=== PATIENT | male | born 1965 | race Caucasian/White ===

== ENCOUNTER 2016-05-04 19:13 | Observation (INO) ==
[2016-05-04] MEDS ORDERED: 0.9 % Sodium Chloride 1,000 ML IVC ONE (20:05)
--- NOTE | 2016-05-04 20:12 | Emergency Department Note ---
Disposition Clinical Impression: Generalized weakness Urinary tract infection Qualifiers: Urinary tract infection type: acute cystitis Hematuria presence: without hematuria Qualified Code(s): N30.00 - Acute cystitis without hematuria Disposition: Admitted As Inpatient Condition: Good Prescriptions: Cefuroxime PO [Ceftin] 500 mg PO Q12HR #20 tablet Time of Disposition: 22:14 General Adult HPI - General Chief complaint: ED General Medical Stated complaint: back and shoulder pain Time Seen by Provider: 05/04/16 20:00 Source: patient Mode of arrival: EMS Limitations: physical limitation Nursing Notes Reviewed: Yes Vital Signs Reviewed: Yes - History of Present Illness HPI Narrative: 50-year-old white male who for the past 2 days had increasing weakness to the point where he cannot move his feet. He has MS, he does not ambulate or stand. He states he can normally move his feet. He states he has not been able to move his feet, and his arm still weaker than usual. He states he may have had a low-grade fever. He denies any congestion or cough. No chest pain or abdominal pain. He does self catheter and denies any difficulty urinating or incontinence. Onset (ago): day(s) (2) Location: upper extremity, lower extremity, other (And pain in his back and shoulders) Pain Scale: 4 Quality: burning Consistency: constant Improves with: nothing Worsens with: nothing Associated symptoms: Reports: fever/chills Treatments Prior to Arrival: none - Related Data Home Medications Medication Instructions Recorded Confirmed Baclofen 20 mg PO QID 11/28/14 05/04/16 Calcium Carbonate/Vitamin D3 1 each PO BID 11/28/14 05/04/16 [Calcium 250+D Tablet] ClonazePAM [Klonopin] 1 mg PO BID 11/28/14 05/04/16 Losartan [Cozaar] 50 mg PO DAILY 11/28/14 05/04/16 Omeprazole [PriLOSEC] 20 mg PO DAILY 11/28/14 05/04/16 Oxybutynin [Ditropan] 5 mg PO BID 11/28/14 05/04/16 Terazosin [Hytrin] 2 mg PO HS 11/28/14 05/04/16 Alendronate Sodium [Fosamax] 70 mg PO QWEEK 05/27/15 05/04/16 Previous Rx's Medication Instructions Recorded Cefuroxime PO [Ceftin] 500 mg PO Q12HR #20 tablet 05/04/16 Allergies Allergy/AdvReac Type Severity Reaction Status Date / Time No Known Allergies Allergy Verified 12/17/15 10:56 All systems ED: reviewed and negative except as stated. Constitutional: Reports: fever, chills Eyes: Denies: eye pain, eye discharge ENT ED: Denies: ear pain, throat pain Cardiovascular: Denies: chest pain, palpitations Respiratory: Denies: cough, dyspnea Gastrointestinal: Denies: abdominal pain, nausea, vomiting, diarrhea Genitourinary: Reports: other (Self-catheterization). Denies: urgency, dysuria , frequency Musculoskeletal: Reports: back pain, neck pain Integumentary: Denies: rash Past Medical History - Past Medical History Medical history: Reports: GERD, hyperlipidemia, hypertension, other Surgical history: Reports: colectomy, orthopedic, other (left wrist surgery secondary to trauma/fracture), other (unknown bladder surgery due to neurogenic bladder, tonsillectomy, wisdom teeth) Psychiatric history: Reports: anxiety - Social History Smoking Status: Never smoker Smokeless Tobacco Status: No Alcohol use: Reports: none Drug use: Reports: none Physical Exam - General Limitations: physical limitation General appearance: alert, in no apparent distress - Head Head exam: atraumatic, normocephalic - Eye Eye exam: Present: PERRL, EOMI. Absent: scleral icterus, conjunctival injection - ENT ENT exam: normal oropharynx, mucous membranes moist, TM's normal bilaterally - Neck Neck exam: Present: normal inspection, full ROM, trachea midline. Absent: tenderness, meningismus, lymphadenopathy - Respiratory Respiratory exam: Present: normal lung sounds bilaterally. Absent: respiratory distress, wheezes - Cardiovascular Cardiovascular exam: Present: regular rate, normal rhythm, normal heart sounds - Abdominal Exam Abdominal exam: Present: soft, Non-Tender. Absent: organomegaly, mass - Extremities Exam Extremities exam: Present: normal capillary refill, pedal edema (1+ edema lower legs bilaterally, pitting.). Absent: tenderness - Back Exam Back exam: Present: normal inspection. Absent: CVA tenderness (R), CVA tenderness (L) - Neurological Exam Neurological exam: Present: alert, oriented X3, other (He has minimal flexion of his feet as well as lower extremities, otherwise no other motor function. He has symmetrical intact motor function in his upper extremities, although his staff radiation therapist and flexion are somewhat weak.) - Psychiatric Psychiatric exam: Present: normal affect, normal mood - Skin Skin exam: Present: warm, dry, intact Course - Reevaluation(s) Reevaluation #1: He does have a urinary tract infection. His white blood cell count is not significantly elevated. His vital signs are stable. He is using his arms fine he can self catheter himself. He generally has very little movement in his legs , he can primarily move his feet. He has a little bit of movement in his feet. We talked about going home versus being admitted. He feels that he is too weak to self catheter himself, and would prefer to stay overnight. I spoke with Dr. Griffin. He is accepted patient for admission. Time: 22:13 Vital Signs Temperature 97.6 F 05/04/16 19:26 Pulse Rate 125 05/04/16 19:26 Respiratory Rate 18 05/04/16 19:26 Blood Pressure 148/79 05/04/16 19:26 O2 Sat by Pulse Oximetry 94 L 05/04/16 19:26 Temperature 97.6 F 05/04/16 19:26 Pulse Rate 121 05/04/16 21:33 Respiratory Rate 20 05/04/16 21:33 Blood Pressure 136/81 05/04/16 21:33 O2 Sat by Pulse Oximetry 97 05/04/16 21:33 Oxygen Delivery Oxygen Delivery Room Air Medical Decision Making - MDM Narrative Medical decision making narrative: Differential includes but is not limited to exacerbation of MS, influenza, urinary tract infection, pneumonia, dehydration, sepsis. - Lab Data Lab results reviewed: Yes I reviewed the patient's lab results. Result diagrams: 05/04/16 20:29 05/04/16 20:29 Lab Results 05/04/16 05/04/16 05/04/16 Range/Units 20:29 20:29 20:29 WBC 8.9 (4.3-11.1) K/mcL RBC 4.51 (4.19-5.50) M/mcL Hgb 14.9 (12.9-16.9) g/dL Hct 43.9 (37.5-50.1) % MCV 97.3 (83.0-100.0) fL MCH 33.0 (28.0-33.3) pg MCHC 33.9 (31.6-35.5) g/dL RDW 14.7 H (11.5-14.5) % Plt Count 236 (140-400) K/mcL MPV 8.7 L (9.4-12.4) fL Immature Gran % 0.3 (0-4) % Seg Neutrophils % 85.5 % Lymphocytes % 7.8 % Monocytes % 5.8 % Eosinophils % 0.4 % Basophils % 0.2 % Neutrophils # 7.6 (1.6-8.9) K/mcL Lymphocytes # 0.7 (0.6-4.6) K/mcL Monocytes # 0.5 (0.0-1.3) K/mcL Eosinophils # 0.0 (0.0-0.6) K/mcL Basophils # 0.0 (0.0-0.2) K/mcL VBG Lactic Acid 1.1 (0.5-2.2) mmol/L Sodium 140 (136-145) mEq/L Potassium 3.9 (3.5-4.5) mEq/L Chloride 104 (98-109) mEq/L Carbon Dioxide 24 (19-29) mEq/L BUN 17 (8-26) mg/dL Creatinine 0.84 (0.72-1.25) mg/dL Est GFR ( Amer) > 60 (> 60) Est GFR (Non-Af Amer) > 60 (> 60) BUN/Creatinine Ratio 20 (6-26) Glucose 114 H (70-99) mg/dL Calculated Osmolality 292 (280-300) Calcium 9.0 (8.6-10.8) mg/dL Total Bilirubin 0.5 (0.2-1.2) mg/dL AST 15 (5-34) Units/L ALT 25 (0-55) Units/L Alkaline Phosphatase 57 (38-126) Units/L Serum Total Protein 7.5 (6.0-8.3) g/dL Albumin 3.9 (3.5-5.0) g/dL Globulin 3.6 H (2.4-3.5) g/dL Albumin/Globulin Ratio 1.1 (1.1-2.2) Urine Color (Yellow) Urine Clarity (Clear) Urine pH (5.0-8.0) pH Units Ur Specific Hiko (1.010-1.025) Urine Protein (Neg-Trace) mg/dL Urine Glucose (UA) (Normal) mg/dL Urine Ketones (Negative) mg/dL Urine Blood (Negative) Urine Nitrite (Negative) Urine Bilirubin (Negative) Urine Urobilinogen (Normal) mg/dL Ur Leukocyte Esterase (Negative) Urine Microscopic RBC (0-3) per hpf Urine Microscopic WBC (0-3) per hpf Ur Squamous Epith Cells (None-Few) per lpf Urine Bacteria (None-Few) per hpf Ur Culture Indicated? (NO) 05/04/16 Range/Units 21:10 WBC (4.3-11.1) K/mcL RBC (4.19-5.50) M/mcL Hgb (12.9-16.9) g/dL Hct (37.5-50.1) % MCV (83.0-100.0) fL MCH (28.0-33.3) pg MCHC (31.6-35.5) g/dL RDW (11.5-14.5) % Plt Count (140-400) K/mcL MPV (9.4-12.4) fL Immature Gran % (0-4) % Seg Neutrophils % % Lymphocytes % % Monocytes % % Eosinophils % % Basophils % % Neutrophils # (1.6-8.9) K/mcL Lymphocytes # (0.6-4.6) K/mcL Monocytes # (0.0-1.3) K/mcL Eosinophils # (0.0-0.6) K/mcL Basophils # (0.0-0.2) K/mcL VBG Lactic Acid (0.5-2.2) mmol/L Sodium (136-145) mEq/L Potassium (3.5-4.5) mEq/L Chloride (98-109) mEq/L Carbon Dioxide (19-29) mEq/L BUN (8-26) mg/dL Creatinine (0.72-1.25) mg/dL Est GFR ( Amer) (> 60) Est GFR (Non-Af Amer) (> 60) BUN/Creatinine Ratio (6-26) Glucose (70-99) mg/dL Calculated Osmolality (280-300) Calcium (8.6-10.8) mg/dL Total Bilirubin (0.2-1.2) mg/dL AST (5-34) Units/L ALT (0-55) Units/L Alkaline Phosphatase (38-126) Units/L Serum Total Protein (6.0-8.3) g/dL Albumin (3.5-5.0) g/dL Globulin (2.4-3.5) g/dL Albumin/Globulin Ratio (1.1-2.2) Urine Color Yellow (Yellow) Urine Clarity Slightly Cloudy A (Clear) Urine pH 5.5 (5.0-8.0) pH Units Ur Specific Hiko 1.025 (1.010-1.025) Urine Protein 30 H (Neg-Trace) mg/dL Urine Glucose (UA) Normal (Normal) mg/dL Urine Ketones Trace H (Negative) mg/dL Urine Blood Large H (Negative) Urine Nitrite Positive A (Negative) Urine Bilirubin Negative (Negative) Urine Urobilinogen Normal (Normal) mg/dL Ur Leukocyte Esterase Trace H (Negative) Urine Microscopic RBC 5-15 H (0-3) per hpf Urine Microscopic WBC 5-15 H (0-3) per hpf Ur Squamous Epith Cells Few (None-Few) per lpf Urine Bacteria Moderate H (None-Few) per hpf Ur Culture Indicated? YES A (NO) - Radiology Data Radiology results reviewed: Yes I reviewed the patient's radiology results. ITS Impressions Chest X-Ray 05/04/16 20:05 IMPRESSION: Bilateral lower lobe atelectasis. D/ / 05/04/2016 20:54:33 Kory Stapleton MD / sarah Interpreting Provider: Kory Stapleton MD
[2016-05-04 20:35] LABS: Basophils % 0.2 %; Eosinophils % 0.4 %; Hematocrit 43.9 % (37.5-50.1); Hemoglobin 14.9 g/dL (12.9-16.9); Immature Granulocytes % 0.3 % (0-4); Lymphocytes # 0.7 K/mcL (0.6-4.6); Lymphocytes % 7.8 %; Mean Corpuscular HGB Conc 33.9 g/dL (31.6-35.5); Mean Corpuscular Volume 97.3 fL (83.0-100.0); Mean Platelet Volume 8.7 fL (9.4-12.4); Monocytes # 0.5 K/mcL (0.0-1.3); Monocytes % 5.8 %; Neutrophils # 7.6 K/mcL (1.6-8.9); Platelet Count 236 K/mcL (140-400); Red Blood Count 4.51 M/mcL (4.19-5.50); Red Cell Distribution Width 14.7 % (11.5-14.5); Segmented Neutrophils % 85.5 %
[2016-05-04 20:54] LABS: Alanine Aminotransferase 25 Units/L (0-55); Albumin 3.9 g/dL (3.5-5.0); Albumin/Globulin Ratio 1.1 (1.1-2.2); Alkaline Phosphatase 57 Units/L (38-126); Aspartate Amino Transferase 15 Units/L (5-34); BUN/Creatinine Ratio 20 (6-26); Bilirubin,Total 0.5 mg/dL (0.2-1.2); Blood Urea Nitrogen 17 mg/dL (8-26); Carbon Dioxide 24 mEq/L (19-29); Chloride 104 mEq/L (98-109); Globulin 3.6 g/dL (2.4-3.5); Glucose 114 mg/dL (70-99); Osmolality,Calculated 292 (280-300); Potassium 3.9 mEq/L (3.5-4.5); Sodium 140 mEq/L (136-145); Total Protein 7.5 g/dL (6.0-8.3); eGFR For African Americans > 60 (> 60); eGFR For Non-African Americans > 60 (> 60)
[2016-05-04 21:19] LABS: Bilirubin,Urine Negative (Negative); Blood,Urine Large (Negative); Clarity,Urine Slightly Cloudy (Clear); Color,Urine Yellow (Yellow); Glucose,Urine (UA) Normal (Normal); Ketones,Urine Trace mg/dL (Negative); Leukocyte Esterase,Urine Trace (Negative); Nitrite,Urine Positive (Negative); PH,Urine 5.5 pH Units (5.0-8.0); Protein,Urine 30 mg/dL (Neg-Trace); Specific Gravity,Urine 1.025 (1.010-1.025); Urobilinogen,Urine Normal (Normal)
[2016-05-04 21:57] LABS: Bacteria,Urine Moderate per hpf (None-Few); Squamous Epithelial Cell,Urine Few per lpf (None-Few)
[2016-05-04] MEDS ORDERED: CefTRIAXone 1,000 MG in D5% in Water (Mini-Bag+) 100 ML IVPB ONE (22:12)
[2016-05-04] MEDS ORDERED: Naloxone 0.4 MG/ML INJ IVP PRN (23:43)
[2016-05-05] MEDS ORDERED: *HR* Enoxaparin 40 MG/0.4 ML SYRINGE SQ SCH (06:00)
[2016-05-05] MEDS ORDERED: CALCIUM PO SCH (09:00)
[2016-05-05] MEDS ORDERED: CefTRIAXone 1,000 MG in D5% in Water (Mini-Bag+) 100 ML IVPB SCH (09:00)
[2016-05-05] MEDS ORDERED: ClonazePAM 0.5 MG TABLET PO SCH (09:00)
[2016-05-05] MEDS ORDERED: Baclofen 10 MG TABLET PO SCH (09:00)
[2016-05-05] MEDS ORDERED: [UNRECOGNIZED DRUG - OTHER] PO SCH (09:00)
[2016-05-05 10:29] VITALS: BP 109/71
--- NOTE | 2016-05-05 12:00 | Internal Med History&Physical ---
Date of Encounter: 05/05/16 Time of Encounter: 11:35 Assessment and Plan (1) Urinary tract infection Current visit: Yes Status: Acute He was given Rocephin in the emergency room. Further workup will be done as needed. Qualifiers: Urinary tract infection type: acute cystitis Hematuria presence: without hematuria Qualified Code(s): N30.00 - Acute cystitis without hematuria Internal Medicine - H&P: HPI Chief complaint: Weakness Admitted From: Home Plans for Post Hospital Care: Home History of present illness: Mr. Cabrera is a 50 year old male who came to emergency room complaining of increased weakness over the past 2 days. He had increased edema and decreased mobility of his feet. He was evaluated in emergency room and felt to have UTI and was admitted to [facility] floor for ongoing care needs. He states he feels back to his baseline now. He is not ambulatory and uses a motorized scooter at home. He was diagnosed with multiple sclerosis in [address] Mars at [facility] approximately every 6 months. He denies large distribution strokes or seizures. Past Med Surg Social Fam HX - Past Medical History Medical history: GERD, hyperlipidemia, hypertension, other Psychiatric history: anxiety - Past Surgical History Surgical History: colectomy, orthopedic, other, other - Social History Smoking Status: Never smoker Smokeless Tobacco Status: No Alcohol use: none Drug use: none - Family History Father Living Status: Still Living Hx Family Cancer: Yes (Prostate cancer in his 60s) Mother Living Status: Still Living Hx Family Cardiac Disorders: No (Hypertension) Hx Family Cancer: No Internal Medicine - H&P: Meds Baclofen 20 mg PO QID 11/28/14 [History] Calcium Carbonate/Vitamin D3 [Calcium 250+D Tablet] 1 each PO BID 11/28/14 [ History] ClonazePAM [Klonopin] 1 mg PO BID 11/28/14 [History] Losartan [Cozaar] 50 mg PO DAILY 11/28/14 [History] Omeprazole [PriLOSEC] 20 mg PO DAILY 11/28/14 [History] Oxybutynin [Ditropan] 5 mg PO BID 11/28/14 [History] Terazosin [Hytrin] 2 mg PO HS 11/28/14 [History] Alendronate Sodium [Fosamax] 70 mg PO QWEEK 05/27/15 [History] Cefuroxime PO [Ceftin] 500 mg PO Q12HR #20 tablet 05/04/16 [Rx] Allergies No Known Allergies Allergy (Verified 12/17/15 10:56) All Systems PM: A 10-system review of systems was performed and is negative for pertinent findings except as documented above in the HPI. Review of systems: Gen.: His weight has increased approximately 10 pounds since May [address] [facility] hospitalization. Cardiovascular: He has a history of hypertension but denies MT heart failure angina DVT or pulmonary embolus Respiratory: He is a lifelong nonsmoker and has no known chronic lung disease. He has had pneumonia in the past. GI: He has GERD but denies disorders of his liver gallbladder or exocrine pancreas. : He was diagnosed with overactive bladder. He has neurogenic bladder and does self catheterizations at home. He denies other kidney or bladder disorders. Neurologic: As per history of present illness Endocrine: He denies diabetes thyroid disease or hyperlipidemia Hematology/oncology: He denies blood disorders cancers or anemia Musk skeletal: He has osteoporosis but denies other bone joint or muscle disorders Psychiatric: He denies anxiety depression or other mental health issues - Constitutional Vitals: Temp Pulse Resp BP Pulse Ox 98.2 F 92 17 109/71 94 L 05/05/16 10:28 05/05/16 10:28 05/05/16 10:28 05/05/16 10:28 05/05/16 10:28 Exam: Gen.: He is a well-developed well-nourished male who appears in no severe distress at present time. HEENT: Head is atraumatic and normocephalic. Eyes: EOMI. There is no scleral icterus. Mouth: Mucosa is moist. Neck: Supple and nontender. There is no thyromegaly or adenopathy noted. Heart: Regular without murmurs gallops or ectopics. Lungs: No wheezes or crackles are heard. Abdomen: Soft and nontender. No masses or guarding are noted. Extremities: He has 1+ edema of the dorsum of the feet bilaterally. There is trace to 1+ edema of the lower anterior shins. He has no significant DJD changes noted in his hands. Neurologic: Mental status: He is talkative and a good historian. Cranial nerves : Smile is symmetric. Forehead wrinkles bilaterally. Tongue protrudes midline. EOMI. Motor: He has subtle weakness in outstretched arm maneuver bilaterally. Cerebellar: Finger to nose is intact and performed well with the right hand. He has some intention tremor when using the left hand. Skin: Warm and dry Internal Med - H&P Results - Labs CBC & Chem 7: 05/04/16 20:29 05/04/16 20:29
--- NOTE | 2016-05-05 12:11 | Discharge Summary ---
Date of Encounter: 05/05/16 Time of Encounter: 11:35 - Discharge Diagnosis (1) Urinary tract infection Priority: Primary Status: Acute Qualifiers: Urinary tract infection type: acute cystitis Hematuria presence: without hematuria Qualified Code(s): N30.00 - Acute cystitis without hematuria - Discharge Medications Prescriptions: Cefuroxime PO [Ceftin] 500 mg PO Q12HR #6 tablet Home Medications: Baclofen 20 mg PO QID 11/28/14 [History] Calcium Carbonate/Vitamin D3 [Calcium 250+D Tablet] 1 each PO BID 11/28/14 [ History] ClonazePAM [Klonopin] 1 mg PO BID 11/28/14 [History] Losartan [Cozaar] 50 mg PO DAILY 11/28/14 [History] Omeprazole [PriLOSEC] 20 mg PO DAILY 11/28/14 [History] Oxybutynin [Ditropan] 5 mg PO BID 11/28/14 [History] Terazosin [Hytrin] 2 mg PO HS 11/28/14 [History] Alendronate Sodium [Fosamax] 70 mg PO QWEEK 05/27/15 [History] Cefuroxime PO [Ceftin] 500 mg PO Q12HR #6 tablet 05/05/16 [Rx] Allergies/Adverse Reactions: Allergies No Known Allergies Allergy (Verified 12/17/15 10:56) Date of admission: 05/04/16 22:59 Primary care physician: Abhi Leslie DO - Patient Status Disposition: Home, Self-Care Condition: Good Overall status at discharge: patient is progressing back to baseline - Discharge Instructions Follow Up With: Abhi Leslie DO [Primary Care Provider] - 1 week - Diet and Activity Activity: resume usual activities as tolerated Diet: advance to your usual diet Hospital course: Mr. Cabrera is a 50 year old male who came to emergency room complaining of increased weakness over the past 2 days. He had increased edema and decreased mobility of his feet. He was evaluated in emergency room and felt to have UTI and was admitted to [facility] floor for ongoing care needs. Initial orders were written by the emergency room physician. I saw him on May 05 and performed a history physical and discharge. He was given a dose of Rocephin in emergency room. By the time I saw him on May 05 he stated his weakness had significantly improved and he felt essentially back to his baseline. He was able to move his arms and legs as at home. He wished to be discharged home which I felt was reasonable. He will continue with antibiotic for UTI for 3 additional days. He will follow with Dr. Leslie within 1 week. I told him he could discuss with Dr. Leslie use of a diuretic if his edema worsened. - Time Spent with Patient Total time spent providing and/or coordinating discharge services: - Constitutional Vitals: Temp Pulse Resp BP Pulse Ox 98.2 F 92 17 109/71 94 L 05/05/16 10:28 05/05/16 10:28 05/05/16 10:28 05/05/16 10:28 05/05/16 10:28
== END 2016-05-05 14:00 | disposition home or self-care (01) ==
LOC: INPPIK 19:13 → EMEROOPIK 19:13 → INPPIK 23:34
PROVIDERS: ADMIT Internal Medicine; ATTEND Internal Medicine

== ENCOUNTER 2016-08-13 09:14 | Observation (INO) ==
[2016-08-13] MEDS ORDERED: 0.9 % Sodium Chloride 1,000 ML IVC ONE (09:17)
[2016-08-13] MEDS ORDERED: Ipratropium/Albuterol Neb 3 ML IH ONE (09:17)
[2016-08-13] MEDS ORDERED: Levofloxacin 750 MG/150 ML 750 MG/150 ML BAG IVPB ONE (09:17)
--- NOTE | 2016-08-13 09:21 | Emergency Department Note ---
Disposition Clinical Impression: Multiple sclerosis, History of progressive weakness, Sepsis syndrome Urinary tract infection Qualifiers: Urinary tract infection type: acute cystitis Hematuria presence: without hematuria Qualified Code(s): N30.00 - Acute cystitis without hematuria Disposition: Admitted As Inpatient Condition: Fair Referrals: Abhi Leslie DO [Primary Care Provider] - Forms: ED Satisfaction Letter SOB HPI - General Chief Complaint: ED Shortness of Breath/Dyspnea Stated Complaint: worsening of MS, cannot move his legs/ SOB Time Seen by Provider: 08/13/16 09:17 Source: patient, EMS Mode of arrival: EMS Limitations: physical limitation Nursing Notes Reviewed: Yes Vital Signs Reviewed: Yes - History of Present Illness Patient reports diffuse weakness such that he has not been able to care for himself. He states his legs are too weak to move anything significant exacerbation of his multiple sclerosis. He additionally feels too weak to cough and has some congestion. He has a neurogenic bladder and does self- catheterization and has had a recent UTI but denies any urinary troubles at this time. Patient usually gets around with an electric wheelchair. He indicates that he is not feeling significantly short of breath at this time, but is saturating at 87% on supplemental oxygen. He denies headache, chest pain or abdominal pain. He denies nausea, vomiting, diarrhea or any extremity pains or localized weakness. He denies any ill exposures. He did have a temperature about 102 he had home and a temporal temperature of 101.8 here. Patient is also markedly to her MS with a heart rate of 143. His blood pressure has been about 120/80. Pt Subjective Complaint: cough Onset (ago): day(s) (1-2) Context: recent illness Severity: moderate Consistency/Duration: gradually worsening Improves with: oxygen, rest Worsens with: exertion, movement, coughing Known history of: other (Multiple sclerosis, self catheterization with recurrent UTI) Associated symptoms: Reports: fever, cough. Denies: chest pain, pain with inspiration, wheezing, sputum production, orthopnea, lower extremity pain, polyuria, polydipsia, parasthesias, palpitations, hemoptysis, diaphoresis, nausea/vomiting, syncope, abdominal pain, rash Treatment prior to arrival: oxygen Cough present: Yes Cough Description: Voluntary, Non-Productive, Weak, Rattling Cough Frequency: Intermittent Sputum production: No - Related Data Home oxygen amount: 2 liters Home Medications Medication Instructions Recorded Confirmed Baclofen 20 mg PO QID 11/28/14 08/13/16 Calcium Carbonate/Vitamin D3 1 each PO BID 11/28/14 08/13/16 [Calcium 250+D Tablet] ClonazePAM [Klonopin] 1 mg PO BID 11/28/14 08/13/16 Losartan [Cozaar] 50 mg PO DAILY 11/28/14 08/13/16 Omeprazole [PriLOSEC] 20 mg PO DAILY 11/28/14 08/13/16 Oxybutynin [Ditropan] 5 mg PO BID 11/28/14 08/13/16 Terazosin [Hytrin] 2 mg PO HS 11/28/14 08/13/16 Alendronate Sodium [Fosamax] 70 mg PO QWEEK 05/27/15 08/13/16 Allergies Allergy/AdvReac Type Severity Reaction Status Date / Time No Known Allergies Allergy Verified 12/17/15 10:56 All systems ED: reviewed and negative except as stated. Past Medical History - Past Medical History Attestation: Yes The following information was validated with the patient. Source: patient, old records reviewed, nursing notes reviewed Medical history: Reports: GERD, hypertension, other (Multiple sclerosis, osteoporosis, neurogenic bladder with self). Denies: coronary artery disease, DVT, diabetes, hyperlipidemia, myocardial infarction, pulmonary embolus, thyroid disease Surgical history: Reports: colectomy, orthopedic, other (Left wrist), other ( Bladder repair, tonsillectomy) Psychiatric history: Reports: anxiety - Social History Smoking Status: Never smoker Smokeless Tobacco Status: No Alcohol use: Reports: none Drug use: Reports: none Physical Exam - General Limitations: physical limitation General appearance: alert, in distress - Head Head exam: atraumatic, normocephalic, normal inspection, other (Head is held in 90 degrees forward flexed while he is semireclined. The patient is repositioned to try to better extend his head and improve his airway.) - Eye Eye exam: Present: normal appearance, PERRL, EOMI. Absent: scleral icterus, conjunctival injection - ENT ENT exam: normal exam, normal oropharynx, mucous membranes dry - Neck Neck exam: Present: normal inspection, full ROM, trachea midline. Absent: tenderness - Chest Chest inspection: Present: normal inspection, symmetric chest wall rise - Respiratory Respiratory exam: Present: normal lung sounds bilaterally, other (Shallow respirations with an occasional congested weak cough.). Absent: respiratory distress, wheezes, prolonged expiratory phase - Cardiovascular Cardiovascular exam: Present: regular rate, normal rhythm, tachycardia, normal heart sounds - Abdominal Exam Abdominal exam: Present: soft, Non-Tender, normal bowel sounds, scar (Large midline scar consistent with the patient's reported previous colectomy.). Absent: tenderness, distention, guarding, rebound, rigidity - Extremities Exam Extremities exam: Present: normal inspection, normal capillary refill. Absent: tenderness, pedal edema, calf tenderness - Expanded Lower Extremity Exam Neurovascular/Tendon exam: Present: normal capillary refill. Absent: motor deficit, sensory deficit, tendon deficit Gait: not tested/not observed - Back Exam Back exam: Present: normal inspection, full ROM. Absent: tenderness, CVA tenderness (R), CVA tenderness (L) - Neurological Exam Neurological exam: Present: alert, oriented X3, CN II-XII intact, motor sensory deficit (Diffuse weakness with chronic weakness of the lower extremities.) - Psychiatric Psychiatric exam: Present: normal mood, flat affect - Skin Skin exam: Present: warm, dry, intact, normal color. Absent: cyanosis, diaphoresis, pallor Course Course Narrative: 09: Patient has immediately started on a evaluation for possible sepsis syndrome with attention to pulmonary and urinary sources. He has been started on aggressive fluid rehydration as well as started on a stress dose steroid and broad-spectrum antibiotic with the administration of Levaquin. It is anticipated that he will need continued inpatient treatment and this will be coordinated with return of lab, EKG and imaging. 1000: Care discussed with bed management [facility]. They recommend starting this patient as an observation status with reevaluation tomorrow as to the need to convert to a full admission. Dr. Griffin has been paged to discuss the patient's inpatient care. 1020: Dr. Griffin has accepted this patient for observation admission to the hospital. Verbal orders have been obtained. Care is coronary to the floor the patient is currently in stable condition. He has a heart rate of 119, blood pressure 117/62 and a saturation of 97% with a respiratory rate of 17. Vital Signs Temperature 101.7 F H 08/13/16 09:17 Pulse Rate 143 08/13/16 09:17 Respiratory Rate 18 08/13/16 09:17 Blood Pressure 129/71 08/13/16 09:17 O2 Sat by Pulse Oximetry 90 08/13/16 09:17 Temperature 101.7 F H 08/13/16 09:20 Pulse Rate 86 08/13/16 10:33 Respiratory Rate 14 08/13/16 10:33 Blood Pressure 124/69 08/13/16 10:33 O2 Sat by Pulse Oximetry 94 08/13/16 10:33 Oxygen Delivery Oxygen Delivery Nasal Cannula Shortness of Breath/Dyspnea - Differential Diagnosis Likely: pneumonia (Urinary tract infection, sepsis syndrome) - Medical Records Medical records reviewed: Yes I reviewed the patient's medical records. - Lab Data Lab results reviewed: Yes I reviewed the patient's lab results. Result diagrams: 08/13/16 09:30 08/13/16 09:30 Lab Results 08/13/16 08/13/16 08/13/16 Range/Units 09:30 09:30 09:30 WBC 13.7 H (4.3-11.1) K/mcL RBC 4.65 (4.19-5.50) M/mcL Hgb 15.2 (12.9-16.9) g/dL Hct 44.6 (37.5-50.1) % MCV 95.9 (83.0-100.0) fL MCH 32.7 (28.0-33.3) pg MCHC 34.1 (31.6-35.5) g/dL RDW 14.6 H (11.5-14.5) % Plt Count 209 (140-400) K/mcL MPV 9.2 L (9.4-12.4) fL Immature Gran % 0.4 (0-4) % Seg Neutrophils % 90.6 % Lymphocytes % 2.9 % Monocytes % 5.8 % Eosinophils % 0.1 % Basophils % 0.2 % Neutrophils # 12.4 H (1.6-8.9) K/mcL Lymphocytes # 0.4 L (0.6-4.6) K/mcL Monocytes # 0.8 (0.0-1.3) K/mcL Eosinophils # 0.0 (0.0-0.6) K/mcL Basophils # 0.0 (0.0-0.2) K/mcL PT 12.7 H (9.4-12.1) Seconds INR 1.2 APTT 30.2 (26.0-36.0) Seconds VBG Lactic Acid (0.5-2.2) mmol/L Sodium 141 (136-145) mEq/L Potassium 3.6 (3.5-4.5) mEq/L Chloride 107 (98-109) mEq/L Carbon Dioxide 21 (19-29) mEq/L BUN 14 (8-26) mg/dL Creatinine 1.02 (0.72-1.25) mg/dL Est GFR ( Amer) > 60 (> 60) Est GFR (Non-Af Amer) > 60 (> 60) BUN/Creatinine Ratio 14 (6-26) Glucose 118 H (70-99) mg/dL Calculated Osmolality 294 (280-300) Calcium 9.2 (8.6-10.8) mg/dL Total Bilirubin 0.7 (0.2-1.2) mg/dL Direct Bilirubin 0.3 (0.0-0.5) mg/dL Indirect Bilirubin 0.4 (0.0-1.2) mg/dL AST 17 (5-34) Units/L ALT 22 (0-55) Units/L Alkaline Phosphatase 65 (38-126) Units/L Troponin I (0-0.03) ng/mL B-Natriuretic Peptide (0-100) pg/mL Serum Total Protein 7.7 (6.0-8.3) g/dL Albumin 3.8 (3.5-5.0) g/dL Globulin 3.9 H (2.4-3.5) g/dL Albumin/Globulin Ratio 1.0 L (1.1-2.2) Urine Color (Yellow) Urine Clarity (Clear) Urine pH (5.0-8.0) pH Units Ur Specific [place] (1.010-1.025) Urine Protein (Neg-Trace) mg/dL Urine Glucose (UA) (Normal) mg/dL Urine Ketones (Negative) mg/dL Urine Blood (Negative) Urine Nitrite (Negative) Urine Bilirubin (Negative) Urine Urobilinogen (Normal) mg/dL Ur Leukocyte Esterase (Negative) Urine Microscopic RBC (0-3) per hpf Urine Microscopic WBC (0-3) per hpf Ur Squamous Epith Cells (None-Few) per lpf Urine Bacteria (None-Few) per hpf Urine Mucus (Few) Ur Culture Indicated? (NO) 08/13/16 08/13/16 08/13/16 Range/Units 09:30 09:30 09:30 WBC (4.3-11.1) K/mcL RBC (4.19-5.50) M/mcL Hgb (12.9-16.9) g/dL Hct (37.5-50.1) % MCV (83.0-100.0) fL MCH (28.0-33.3) pg MCHC (31.6-35.5) g/dL RDW (11.5-14.5) % Plt Count (140-400) K/mcL MPV (9.4-12.4) fL Immature Gran % (0-4) % Seg Neutrophils % % Lymphocytes % % Monocytes % % Eosinophils % % Basophils % % Neutrophils # (1.6-8.9) K/mcL Lymphocytes # (0.6-4.6) K/mcL Monocytes # (0.0-1.3) K/mcL Eosinophils # (0.0-0.6) K/mcL Basophils # (0.0-0.2) K/mcL PT (9.4-12.1) Seconds INR APTT (26.0-36.0) Seconds VBG Lactic Acid 1.2 (0.5-2.2) mmol/L Sodium (136-145) mEq/L Potassium (3.5-4.5) mEq/L Chloride (98-109) mEq/L Carbon Dioxide (19-29) mEq/L BUN (8-26) mg/dL Creatinine (0.72-1.25) mg/dL Est GFR ( Amer) (> 60) Est GFR (Non-Af Amer) (> 60) BUN/Creatinine Ratio (6-26) Glucose (70-99) mg/dL Calculated Osmolality (280-300) Calcium (8.6-10.8) mg/dL Total Bilirubin (0.2-1.2) mg/dL Direct Bilirubin (0.0-0.5) mg/dL Indirect Bilirubin (0.0-1.2) mg/dL AST (5-34) Units/L ALT (0-55) Units/L Alkaline Phosphatase (38-126) Units/L Troponin I 0.02 (0-0.03) ng/mL B-Natriuretic Peptide 28 (0-100) pg/mL Serum Total Protein (6.0-8.3) g/dL Albumin (3.5-5.0) g/dL Globulin (2.4-3.5) g/dL Albumin/Globulin Ratio (1.1-2.2) Urine Color (Yellow) Urine Clarity (Clear) Urine pH (5.0-8.0) pH Units Ur Specific [place] (1.010-1.025) Urine Protein (Neg-Trace) mg/dL Urine Glucose (UA) (Normal) mg/dL Urine Ketones (Negative) mg/dL Urine Blood (Negative) Urine Nitrite (Negative) Urine Bilirubin (Negative) Urine Urobilinogen (Normal) mg/dL Ur Leukocyte Esterase (Negative) Urine Microscopic RBC (0-3) per hpf Urine Microscopic WBC (0-3) per hpf Ur Squamous Epith Cells (None-Few) per lpf Urine Bacteria (None-Few) per hpf Urine Mucus (Few) Ur Culture Indicated? (NO) 08/13/16 Range/Units Unknown WBC (4.3-11.1) K/mcL RBC (4.19-5.50) M/mcL Hgb (12.9-16.9) g/dL Hct (37.5-50.1) % MCV (83.0-100.0) fL MCH (28.0-33.3) pg MCHC (31.6-35.5) g/dL RDW (11.5-14.5) % Plt Count (140-400) K/mcL MPV (9.4-12.4) fL Immature Gran % (0-4) % Seg Neutrophils % % Lymphocytes % % Monocytes % % Eosinophils % % Basophils % % Neutrophils # (1.6-8.9) K/mcL Lymphocytes # (0.6-4.6) K/mcL Monocytes # (0.0-1.3) K/mcL Eosinophils # (0.0-0.6) K/mcL Basophils # (0.0-0.2) K/mcL PT (9.4-12.1) Seconds INR APTT (26.0-36.0) Seconds VBG Lactic Acid (0.5-2.2) mmol/L Sodium (136-145) mEq/L Potassium (3.5-4.5) mEq/L Chloride (98-109) mEq/L Carbon Dioxide (19-29) mEq/L BUN (8-26) mg/dL Creatinine (0.72-1.25) mg/dL Est GFR ( Amer) (> 60) Est GFR (Non-Af Amer) (> 60) BUN/Creatinine Ratio (6-26) Glucose (70-99) mg/dL Calculated Osmolality (280-300) Calcium (8.6-10.8) mg/dL Total Bilirubin (0.2-1.2) mg/dL Direct Bilirubin (0.0-0.5) mg/dL Indirect Bilirubin (0.0-1.2) mg/dL AST (5-34) Units/L ALT (0-55) Units/L Alkaline Phosphatase (38-126) Units/L Troponin I (0-0.03) ng/mL B-Natriuretic Peptide (0-100) pg/mL Serum Total Protein (6.0-8.3) g/dL Albumin (3.5-5.0) g/dL Globulin (2.4-3.5) g/dL Albumin/Globulin Ratio (1.1-2.2) Urine Color Yellow (Yellow) Urine Clarity Cloudy A (Clear) Urine pH 7.0 (5.0-8.0) pH Units Ur Specific [place] 1.010 (1.010-1.025) Urine Protein 30 H (Neg-Trace) mg/dL Urine Glucose (UA) Normal (Normal) mg/dL Urine Ketones Negative (Negative) mg/dL Urine Blood Moderate H (Negative) Urine Nitrite Positive A (Negative) Urine Bilirubin Negative (Negative) Urine Urobilinogen Normal (Normal) mg/dL Ur Leukocyte Esterase Moderate H (Negative) Urine Microscopic RBC 3-5 H (0-3) per hpf Urine Microscopic WBC 50-100 H (0-3) per hpf Ur Squamous Epith Cells Few (None-Few) per lpf Urine Bacteria Moderate H (None-Few) per hpf Urine Mucus Few (Few) Ur Culture Indicated? YES A (NO) - Radiology Data Radiology results reviewed: Yes I reviewed the patient's radiology results. Single view chest x-ray is performed. This is significantly rotated and evaluated on 2 films. This does not demonstrate evidence for infiltrate, effusion, pneumothorax, foreign body or heart failure. The cardiac silhouette is normal. I do not see abnormality to the osseous structures of the chest. This is on my interpretation. Impressions Chest X-Ray 08/13/16 09:17 IMPRESSION: Cardiomegaly, mildly increased. Mild pulmonary vascular congestion. Mild atelectasis at the bilateral lung bases. D/ / Andrei Guido MD / Andrie Guido MD Interpreting Provider: Andrei Guido MD - EKG Data EKG attestation: Yes I reviewed and interpreted this EKG. EKG shows normal: Reports: sinus rhythm, axis, intervals, QRS complexes, ST-T waves Rate: Reports: tachycardia (131) Q waves: Reports: III Interpretation: Reports: no acute changes (Sinus tachycardia) Critical Care Time Critical Care Time: Yes Total Critical Care Time: 25 Attestation: As this patient did present with signs and symptoms of potential life- threatening illness requiring my urgent intervention, total critical care time in this patient's care has been 25 minutes, not withstanding separately reportable procedures.
[2016-08-13 09:37] LABS: Basophils % 0.2 %; Eosinophils % 0.1 %; Hematocrit 44.6 % (37.5-50.1); Hemoglobin 15.2 g/dL (12.9-16.9); Immature Granulocytes % 0.4 % (0-4); Lymphocytes # 0.4 K/mcL (0.6-4.6); Lymphocytes % 2.9 %; Mean Corpuscular HGB Conc 34.1 g/dL (31.6-35.5); Mean Corpuscular Hemoglobin 32.7 pg (28.0-33.3); Mean Corpuscular Volume 95.9 fL (83.0-100.0); Mean Platelet Volume 9.2 fL (9.4-12.4); Monocytes # 0.8 K/mcL (0.0-1.3); Monocytes % 5.8 %; Platelet Count 209 K/mcL (140-400); Red Blood Count 4.65 M/mcL (4.19-5.50); Red Cell Distribution Width 14.6 % (11.5-14.5); Segmented Neutrophils % 90.6 %
[2016-08-13 09:38] LABS: Neutrophils # 12.4 K/mcL (1.6-8.9)
[2016-08-13 09:43] LABS: INR 1.2; Prothrombin Time 12.7 Seconds (9.4-12.1)
[2016-08-13 09:45] LABS: Activated Partial Thrombo Time 30.2 Seconds (26.0-36.0)
[2016-08-13 09:54] LABS: Bilirubin,Urine Negative (Negative); Blood,Urine Moderate (Negative); Clarity,Urine Cloudy (Clear); Color,Urine Yellow (Yellow); Glucose,Urine (UA) Normal (Normal); Ketones,Urine Negative (Negative); Leukocyte Esterase,Urine Moderate (Negative); Nitrite,Urine Positive (Negative); Protein,Urine 30 mg/dL (Neg-Trace); Urobilinogen,Urine Normal (Normal)
[2016-08-13 09:55] LABS: Alanine Aminotransferase 22 Units/L (0-55); Albumin 3.8 g/dL (3.5-5.0); Alkaline Phosphatase 65 Units/L (38-126); Aspartate Amino Transferase 17 Units/L (5-34); BUN/Creatinine Ratio 14 (6-26); Bilirubin,Direct 0.3 mg/dL (0.0-0.5); Bilirubin,Indirect 0.4 mg/dL (0.0-1.2); Bilirubin,Total 0.7 mg/dL (0.2-1.2); Blood Urea Nitrogen 14 mg/dL (8-26); Calcium 9.2 mg/dL (8.6-10.8); Carbon Dioxide 21 mEq/L (19-29); Chloride 107 mEq/L (98-109); Globulin 3.9 g/dL (2.4-3.5); Glucose 118 mg/dL (70-99); Osmolality,Calculated 294 (280-300); Potassium 3.6 mEq/L (3.5-4.5); Sodium 141 mEq/L (136-145); Total Protein 7.7 g/dL (6.0-8.3); eGFR For African Americans > 60 (> 60); eGFR For Non-African Americans > 60 (> 60)
[2016-08-13 09:59] LABS: Bacteria,Urine Moderate per hpf (None-Few); Mucus,Urine Few (Few); Squamous Epithelial Cell,Urine Few per lpf (None-Few); WBC,Urine 50-100 per hpf (0-3)
[2016-08-13] MEDS ORDERED: 0.9 % Sodium Chloride 1,000 ML IVC SCH (10:50)
[2016-08-13] MEDS ORDERED: Acetaminophen 325 MG TABLET PO PRN (10:50)
[2016-08-13] MEDS ORDERED: Ibuprofen 400 MG TABLET PO PRN (10:50)
[2016-08-13] MEDS ORDERED: MOM Conc 10 ML UD.LIQ PO PRN (10:50)
[2016-08-13] MEDS ORDERED: Naloxone 0.4 MG/ML INJ IVP PRN (10:50)
[2016-08-13] MEDS ORDERED: Ondansetron 4 MG/2 ML VIAL IVP PRN (10:50)
[2016-08-13] MEDS: Baclofen 10 MG TABLET PO SCH ×3 (14:32→22:01)
--- NOTE | 2016-08-13 16:13 | Internal Med History&Physical ---
Date of Encounter: 08/13/16 Time of Encounter: 15:50 Assessment and Plan (1) Urinary tract infection Current visit: Yes Status: Acute He has been started on Levaquin by the emergency room physician. IV fluids have also been started. His regular home medicines will be generally continued otherwise. Further workup will be done as needed. Qualifiers: Urinary tract infection type: acute cystitis Hematuria presence: without hematuria Qualified Code(s): N30.00 - Acute cystitis without hematuria Internal Medicine - H&P: HPI Chief complaint: Fevers and weakness Admitted From: Home Plans for Post Hospital Care: Home History of present illness: Mr. Cabrera is a 51 year old male who came to emergency room stating he had fevers and increased weakness over the proceeding 24-48 hours. He particularly noticed weakness in his hands with inability to do usual dexterity maneuvers. He reports he had fevers up to 102. He was evaluated in emergency room and found to have UTI. He was admitted to [facility] floor for ongoing care needs. He was hospitalized last at [facility] April 2016 with a UTI. He states he has monthly UTIs since that visit. He has neurogenic bladder and does frequent daily self catheterizations at home. He denies other kidney or bladder disorders. Past Med Surg Social Fam HX - Past Medical History Medical history: GERD, hypertension, other Psychiatric history: anxiety - Past Surgical History Surgical History: colectomy, orthopedic, other, other - Social History Smoking Status: Never smoker Smokeless Tobacco Status: No Alcohol use: rarely Drug use: none - Family History Father Living Status: Still Living Hx Family Cancer: Yes (Prostate cancer in his 60s) Mother Living Status: Still Living Hx Family Cardiac Disorders: No (Hypertension) Hx Family Cancer: No Internal Medicine - H&P: Meds Baclofen 20 mg PO QID 11/28/14 [History] Calcium Carbonate/Vitamin D3 [Calcium 250+D Tablet] 1 each PO BID 11/28/14 [ History] ClonazePAM [Klonopin] 1 mg PO BID 11/28/14 [History] Losartan [Cozaar] 50 mg PO DAILY 11/28/14 [History] Omeprazole [PriLOSEC] 20 mg PO DAILY 11/28/14 [History] Oxybutynin [Ditropan] 5 mg PO BID 11/28/14 [History] Terazosin [Hytrin] 2 mg PO HS 11/28/14 [History] Alendronate Sodium [Fosamax] 70 mg PO QWEEK 05/27/15 [History] Allergies No Known Allergies Allergy (Verified 12/17/15 10:56) All Systems PM: A 10-system review of systems was performed and is negative for pertinent findings except as documented above in the HPI. Review of systems: Review of systems from his April 2016 [facility] hospitalization were reviewed and revised as below. Gen.: His weight has decreased from 104.326 kg at the April 2016 hospitalization to 100.244 kg now. Cardiovascular: He has a history of hypertension but denies [place] heart failure angina DVT or pulmonary embolus Respiratory: He is a lifelong nonsmoker and has no known chronic lung disease. He has had pneumonia in the past. GI: He has GERD but denies disorders of his liver gallbladder or exocrine pancreas. : As per history of present illness Neurologic: He was diagnosed with multiple sclerosis in [address] Mars at [facility] approximately every 6 months. He denies large distribution strokes or seizures. He is nonambulatory and uses a motorized scooter at home. Endocrine: He denies diabetes thyroid disease or hyperlipidemia Hematology/oncology: He denies blood disorders cancers or anemia [place] skeletal: He has osteoporosis but denies other bone joint or muscle disorders Psychiatric: He denies anxiety depression or other mental health issues - Constitutional Vitals: Temp Pulse Resp BP Pulse Ox 98.5 F 101 18 103/70 96 08/13/16 14:07 08/13/16 14:07 08/13/16 14:07 08/13/16 14:07 08/13/16 14:07 Exam: Gen.: He is a well-developed well-nourished male who appears in no severe distress at present time. HEENT: Head is atraumatic and normocephalic. Eyes: EOMI. There is no scleral icterus. Mouth: Mucosa is moist. Neck: Supple and nontender. There is no thyromegaly or adenopathy noted. Heart: Regular without murmurs gallops or ectopics. Lungs: No wheezes or crackles are heard. Abdomen: Soft and nontender. There are no masses or guarding noted. Extremities: He is wearing GOKUL hose. There is no edema palpated through the GOKUL hose. He has no cyanosis of his fingernails. Neurologic: Mental status: He is talkative and a good historian. Cranial nerves : Smile is symmetric. Forehead wrinkles bilaterally. Tongue protrudes midline. EOMI. Motor: He has no pronator drift. He has slight weakness in attempting finger to nose maneuver. He does not move his legs spontaneously. Cerebellar: Finger to nose is intact bilaterally with some motor weakness as per above Skin: Warm and dry Internal Med - H&P Results - Labs CBC & Chem 7: 08/13/16 09:30 08/13/16 09:30 Labs: Urine 08/13/16 Range/Units Unknown Urine Color Yellow (Yellow) Urine Clarity Cloudy A (Clear) Urine pH 7.0 (5.0-8.0) pH Units Ur Specific [place] 1.010 (1.010-1.025) Urine Protein 30 H (Neg-Trace) mg/dL Urine Glucose (UA) Normal (Normal) mg/dL - VTE Documentation of Mechanical Device: Graduated compression elastic hosiery
[2016-08-13] MEDS: 0.9 % Sodium Chloride 1,000 ML IVC SCH (18:04)
[2016-08-13] MEDS: Lactobacillus 1 EACH CAP.SPRINK PO SCH (22:00)
[2016-08-13] MEDS: ClonazePAM 0.5 MG TABLET PO SCH (22:00)
[2016-08-14] MEDS: (Calcium Carbonate/Vitamin D3 [Calcium 250+D Tablet] PO SCH ×2 (05:01→08:54)
[2016-08-14 05:36] LABS: Basophils % 0.1 %; Eosinophils % 0.1 %; Hematocrit 36.6 % (37.5-50.1); Hemoglobin 12.3 g/dL (12.9-16.9); Immature Granulocytes % 0.6 % (0-4); Lymphocytes % 6.5 %; Mean Corpuscular HGB Conc 33.6 g/dL (31.6-35.5); Mean Corpuscular Hemoglobin 33.2 pg (28.0-33.3); Mean Corpuscular Volume 98.7 fL (83.0-100.0); Mean Platelet Volume 9.3 fL (9.4-12.4); Monocytes # 1.4 K/mcL (0.0-1.3); Monocytes % 8.6 %; Neutrophils # 13.5 K/mcL (1.6-8.9); Platelet Count 232 K/mcL (140-400); Red Blood Count 3.71 M/mcL (4.19-5.50); Red Cell Distribution Width 14.9 % (11.5-14.5); Segmented Neutrophils % 84.1 %
[2016-08-14 05:39] LABS: Lymphocytes # 1.1 K/mcL (0.6-4.6)
[2016-08-14] MEDS: Pantoprazole 40 MG VIAL IVP SCH (08:49)
[2016-08-14] MEDS: Baclofen 10 MG TABLET PO SCH ×4 (08:51→20:20)
[2016-08-14] MEDS: ClonazePAM 0.5 MG TABLET PO SCH (08:51)
[2016-08-14] MEDS: Lactobacillus 1 EACH CAP.SPRINK PO SCH ×2 (08:51→20:20)
[2016-08-14] MEDS: Levofloxacin 750 MG/150 ML 750 MG/150 ML BAG IVPB SCH (08:53)
--- NOTE | 2016-08-14 10:02 | Internal Med Progress Note ---
Date of Encounter: 08/14/16 Time of Encounter: 09:55 - Assessment and plan (1) Urinary tract infection Current Visit: Yes Status: Acute Assessment and plan: August 14. Continue Levaquin. Will add oral Septra pending final urine culture report. Recheck labs in a.m. Qualifiers: Urinary tract infection type: acute cystitis Hematuria presence: without hematuria Qualified Code(s): N30.00 - Acute cystitis without hematuria - Subjective Interval history: August 14. He has no new complaints and feels better. - Constitutional Vitals: Temp Pulse Resp BP Pulse Ox 97.5 F L 89 18 104/59 89 08/14/16 07:10 08/14/16 07:10 08/14/16 07:10 08/14/16 07:10 08/14/16 07:10 Exam: He is resting comfortably in bed. His affect is bright and cheerful. I reviewed his medications and lab results. I note worsening leukocytosis. I reviewed his urine culture showing preliminary report of gram-negative rods. Internal Medicine: Result - Labs CBC & Chem 7: 08/14/16 05:15 08/13/16 09:30 Labs: Short CBC 08/14/16 Range/Units 05:15 WBC 16.1 H (4.3-11.1) K/mcL Hgb 12.3 L D (12.9-16.9) g/dL Hct 36.6 L (37.5-50.1) % Plt Count 232 (140-400) K/mcL Neutrophils # 13.5 H (1.6-8.9) K/mcL - ABG Interpretation ABG results: PT/INR, D-dimer PT 12.7 Seconds (9.4-12.1) H 08/13/16 09:30 - VTE Documentation of Mechanical Device: Graduated compression elastic hosiery Consult Discharge Plan - Plan Referrals: Abhi Leslie DO [Primary Care Provider] - 1 week
[2016-08-14] MEDS: Sulfamethoxazole/Trimeth DS 1 EACH TABLET PO SCH ×2 (12:23→20:19)
[2016-08-14] MEDS: 0.9 % Sodium Chloride 1,000 ML IVC SCH (16:29)
--- NOTE | 2016-08-14 20:17 | Electrocardiograph Report ---
[address] [place], [place] [address] Test Date: 2016-08-13 Pat Name: Alejandra [place] Department: [id number] Room: [facility] Gender: M [employer] Adviser: [id number] : 1965 Requested By: Rick Gandhi Order Number: [id number] Reading MD: Mamadou Piper MD Measurements Intervals [place] Rate: 131 P: 45 GA: 159 QRS: 22 QRSD: 86 T: 42 QT: 294 QTc: 371 Interpretive Statements SINUS TACHYCARDIA Electronically Signed On 08-14-2016 20:15:42 EDT by Mamadou Piper MD
[2016-08-14] MEDS ORDERED: ClonazePAM 0.5 MG TABLET PO SCH (21:00)
[2016-08-15] MEDS: (Calcium Carbonate/Vitamin D3 [Calcium 250+D Tablet] PO SCH ×2 (05:49→09:19)
[2016-08-15 06:45] LABS: Basophils % 0.3 %; Eosinophils # 0.1 K/mcL (0.0-0.6); Eosinophils % 1.4 %; Hematocrit 37.1 % (37.5-50.1); Hemoglobin 12.5 g/dL (12.9-16.9); Immature Granulocytes % 0.3 % (0-4); Lymphocytes # 0.4 K/mcL (0.6-4.6); Lymphocytes % 5.7 %; Mean Corpuscular HGB Conc 33.7 g/dL (31.6-35.5); Mean Corpuscular Hemoglobin 32.9 pg (28.0-33.3); Mean Corpuscular Volume 97.6 fL (83.0-100.0); Mean Platelet Volume 9.4 fL (9.4-12.4); Monocytes # 0.4 K/mcL (0.0-1.3); Monocytes % 5.2 %; Neutrophils # 6.8 K/mcL (1.6-8.9); Platelet Count 197 K/mcL (140-400); Red Cell Distribution Width 14.7 % (11.5-14.5); Segmented Neutrophils % 87.1 %
[2016-08-15 08:08] VITALS: BP 135/67
[2016-08-15] MEDS: Levofloxacin 750 MG/150 ML 750 MG/150 ML BAG IVPB SCH (09:18)
[2016-08-15] MEDS: Sulfamethoxazole/Trimeth DS 1 EACH TABLET PO SCH (09:19)
[2016-08-15] MEDS: Lactobacillus 1 EACH CAP.SPRINK PO SCH (09:19)
[2016-08-15] MEDS: Pantoprazole 40 MG VIAL IVP SCH (09:19)
[2016-08-15] MEDS: Baclofen 10 MG TABLET PO SCH (09:19)
--- NOTE | 2016-08-15 09:58 | Discharge Summary ---
Date of Encounter: 08/15/16 Time of Encounter: 09:50 - Discharge Diagnosis (1) Urinary tract infection Priority: Primary Status: Acute Qualifiers: Urinary tract infection type: acute cystitis Hematuria presence: without hematuria Qualified Code(s): N30.00 - Acute cystitis without hematuria - Discharge Medications Prescriptions: Lactobacillus [Culturelle] 1 each PO BID #10 cap.sprink Sulfamethoxazole/Trimeth DS [Bactrim Ds] 1 each PO BID #10 tablet Home Medications: Baclofen 20 mg PO QID 11/28/14 [History] Calcium Carbonate/Vitamin D3 [Calcium 250+D Tablet] 1 each PO BID 11/28/14 [ History] ClonazePAM [Klonopin] 1 mg PO BID 11/28/14 [History] Losartan [Cozaar] 50 mg PO DAILY 11/28/14 [History] Omeprazole [PriLOSEC] 20 mg PO DAILY 11/28/14 [History] Oxybutynin [Ditropan] 5 mg PO BID 11/28/14 [History] Terazosin [Hytrin] 2 mg PO HS 11/28/14 [History] Alendronate Sodium [Fosamax] 70 mg PO QWEEK 05/27/15 [History] Lactobacillus [Culturelle] 1 each PO BID #10 cap.sprink 08/15/16 [Rx] Sulfamethoxazole/Trimeth DS [Bactrim Ds] 1 each PO BID #10 tablet 08/15/16 [Rx] Allergies/Adverse Reactions: Allergies No Known Allergies Allergy (Verified 12/17/15 10:56) Date of admission: 08/13/16 10:43 Primary care physician: bAhi Leslie DO - Patient Status Disposition: Home, Self-Care Condition: Fair Overall status at discharge: patient is progressing back to baseline - Discharge Instructions Follow Up With: Abhi Leslie DO [Primary Care Provider] - 1 week - Diet and Activity Activity: resume usual activities as tolerated Diet: advance to your usual diet Hospital course: Mr. Cabrera is a 51 year old male who came to emergency room stating he had fevers and increased weakness over the proceeding 24-48 hours. He particularly noticed weakness in his hands with inability to do usual dexterity maneuvers. He reports he had fevers up to 102. He was evaluated in emergency room and found to have UTI. He was admitted to [facility] floor for ongoing care needs. Initial orders were written by the emergency room physician. I saw him on August 13 and performed the history and physical. He was started on Levaquin by the emergency room physician. I added Septra DS on August 14 when WBC count dayami to 16.1 K. Urine culture returned showing Klebsiella pneumonia. The WBC normalized by August 15 and he felt stable for discharge home. He will continue with Septra DS and probiotic for 5 additional days after discharge. - Time Spent with Patient Total time spent providing and/or coordinating discharge services: - Constitutional Vitals: Temp Pulse Resp BP Pulse Ox 98.6 F 110 16 135/67 93 08/15/16 07:00 08/15/16 07:00 08/15/16 07:00 08/15/16 07:00 08/15/16 07:00 - VTE Documentation of Mechanical Device: Graduated compression elastic hosiery
== END 2016-08-15 12:30 | disposition home or self-care (01) ==
LOC: INPPIK 09:14 → EMEROOPIK 09:14 → INPPIK 11:05
PROVIDERS: ADMIT Internal Medicine; ATTEND Internal Medicine

== ENCOUNTER 2018-09-16 10:47 | Observation (INO) ==
[2018-09-16] MEDS ORDERED: 0.9 % Sodium Chloride 1,000 ML IVC ONE (10:55)
[2018-09-16] MEDS ORDERED: Ondansetron 4 MG/2 ML VIAL IVP ONE (10:55)
--- NOTE | 2018-09-16 11:02 | Emergency Department Note ---
Disposition Clinical Impression: UTI (urinary tract infection) Qualifiers: Urinary tract infection type: catheter-associated UTI Indwelling urinary catheter type: unspecified Encounter type: initial encounter Qualified Code(s): T83.511A - Infection and inflammatory reaction due to indwelling urethral catheter, initial encounter; N39.0 - Urinary tract infection, site not specified Pneumonia Qualifiers: Pneumonia type: due to unspecified organism Laterality: right Lung location: lower lobe of lung Qualified Code(s): J18.1 - Lobar pneumonia, unspecified organism Disposition: Admitted As Inpatient Condition: Fair Referrals: Abhi Leslie DO [Primary Care Provider] - Forms: ED Satisfaction Letter Time of Disposition: 13:30 Nausea/Vomiting/Diarrhea HPI - General Chief complaint: ED Nausea/Vomiting/Diarrhea Stated complaint: vomiting Source: patient, EMS Mode of arrival: EMS Limitations: physical limitation Nursing Notes Reviewed: Yes - History of Present Illness HPI Narrative: Patient presents to the ED via EMS complaining of generalized illness with symptoms of nausea, vomiting and a cough. Patient states he started feeling nauseous last night. He started throwing up this morning and has had 2-3 episodes of nonbloody nonbilious emesis. Denies any abdominal pain. No diarrhea or constipation. He has had a dry cough. No sore throat, nasal congestion or rhinorrhea. No chest pain or shortness of breath. He states his family took his temperature and it was 100 earlier this morning. Patient has a history of MS. He lives with his she is out of town and he has other family assisting him. He normally has to self catheter for urine but had trouble cathetering himself last night and has since been incontinent of urine. He denies any urinary symptoms however frequency, urgency or dysuria. He has had one bowel surgery due to bowel obstruction many years ago. Other medical issues include high blood pressure. He denies any recent travel or sick contacts. - Related Data Home Medications Medication Instructions Recorded Confirmed Baclofen 20 mg PO QID 11/28/14 08/13/16 Calcium Carbonate/Vitamin D3 1 each PO BID 11/28/14 08/13/16 [Calcium 250-D Tablet] Losartan [Cozaar] 50 mg PO DAILY 11/28/14 08/13/16 Oxybutynin [Ditropan] 5 mg PO BID 11/28/14 08/13/16 Terazosin [Hytrin] 2 mg PO HS 11/28/14 08/13/16 clonazePAM [Klonopin] 1 mg PO BID 11/28/14 08/13/16 Alendronate Sodium [Fosamax] 70 mg PO QWEEK 05/27/15 08/13/16 Previous Rx's Medication Instructions Recorded Lactobacillus [Culturelle] 1 each PO BID #10 cap.sprink 08/15/16 Ibuprofen [Motrin] 800 mg PO Q8HR #30 tablet 09/19/16 Tramadol HCl [Ultram] 50 mg PO TID PRN #15 tab 09/19/16 Magnesium Citrate 295 ml PO Q6H #1 solution 10/30/16 cephALEXin [Keflex] 500 mg PO QID #40 capsule 10/30/16 Allergies Allergy/AdvReac Type Severity Reaction Status Date / Time No Known Allergies Allergy Verified 09/19/16 12:46 Constitutional: Reports: fever. Denies: chills, weakness, weight change Eyes: Denies: eye pain, eye discharge, vision change ENT ED: Denies: ear pain, throat pain, dental pain, hearing loss, epistaxis, congestion, dysphagia Cardiovascular: Denies: chest pain, palpitations, dyspnea on exertion, edema, syncope Respiratory: Reports: cough. Denies: dyspnea, wheezes, hemoptysis, stridor, sputum production Gastrointestinal: Reports: nausea, vomiting. Denies: abdominal pain, diarrhea, constipation, hematemesis, melena, hematochezia Genitourinary: Denies: urgency, dysuria, frequency, hematuria Musculoskeletal: Denies: back pain, neck pain, arthralgia, myalgia Integumentary: Denies: rash, abrasion, lesions Neurological: Denies: headache, weakness, numbness, paresthesias, confusion, abnormal gait, vertigo Psychiatric: Denies: anxiety, depression, suicidal thoughts, homicidal thoughts, auditory hallucinations, visual hallucinations Endocrine: Denies: fatigue Hematological/Lymphatic: Denies: easy bleeding, easy bruising Allergic/Immunologic: Denies: facial swelling, urticaria Past Medical History - Past Medical History Medical history: Reports: hypertension, other Surgical history: Reports: non-contributory, colectomy, orthopedic, other, other Psychiatric history: Reports: anxiety - Social History Smoking Status: Never smoker Smokeless Tobacco Status: No Alcohol use: Reports: none Drug use: Reports: none Physical Exam - General Limitations: physical limitation General appearance: alert, in no apparent distress - Head Head exam: atraumatic, normocephalic, normal inspection - Eye Eye exam: Present: normal appearance, PERRL, EOMI - ENT ENT exam: normal exam, normal oropharynx, mucous membranes moist - Neck Neck exam: Present: normal inspection, full ROM, trachea midline - Chest Chest inspection: Present: normal inspection, symmetric chest wall rise - Respiratory Respiratory exam: Present: normal lung sounds bilaterally - Cardiovascular Cardiovascular exam: Present: regular rate, normal rhythm, normal heart sounds - Abdominal Exam Abdominal exam: Present: soft, Non-Tender. Absent: tenderness, distention, guarding, rebound, rigidity - Extremities Exam Extremities exam: Present: normal inspection, full ROM. Absent: tenderness, pedal edema - Back Exam Back exam: Present: normal inspection, full ROM. Absent: tenderness, CVA tender ness (R), CVA tenderness (L) - Neurological Exam Neurological exam: Present: alert, oriented X3 - Psychiatric Psychiatric exam: Present: normal affect, normal mood - Skin Skin exam: Present: warm, dry, intact, normal color Course Course Narrative: Patient presents to the ED complaining of nausea, vomiting and a dry cough that started yesterday. On arrival he is very slightly hypertensive with mild tachycardia. Temperature is 99.8. He is nontoxic in appearance and hemodynamically stable. Abdomen is soft and nontender. Will check routine lab work including urinalysis. We will give IV fluids and medication for nausea. Will obtain chest x-ray due to the cough. - Reevaluation(s) Reevaluation #1: Urinalysis shows evidence of UTI. He has a leukocytosis with left shift lactic acid is normal.. Chest x-ray was rotated and there was a question of possible pneumonia in the right lower lobe. Will obtain PA and lateral of chest for further evaluation. We will give ceftriaxone for the UTI. Reevaluation #2: Repeat chest x-ray does reveal a right lower lobe pneumonia. Will add azithromycin to the antibiotic regimen and check blood cultures. Discussed with patient I feel he would benefit for admission and IV antibiotics given his other underlying medical conditions with 2 active infections and he is in agreement. Will contact the hospitalist. Time: 13:24 Reevaluation #3: Spoke to Dr. Griffin, hospitalist line person who has agreed to accept patient. Time: 13:34 Vital Signs Temperature 99.8 F H 09/16/18 10:49 Pulse Rate 115 09/16/18 10:49 Respiratory Rate 20 09/16/18 10:49 Blood Pressure 140/72 09/16/18 10:49 O2 Sat by Pulse Oximetry 94 09/16/18 10:49 Temperature 99.8 F H 09/16/18 10:49 Pulse Rate 102 09/16/18 13:06 Respiratory Rate 16 09/16/18 13:06 Blood Pressure 121/67 09/16/18 13:06 O2 Sat by Pulse Oximetry 95 09/16/18 13:06 Oxygen Delivery Oxygen Delivery Room Air Nausea/Vomiting/Diarrhea - Differential Diagnosis Likely: gastroenteritis, dehydration. Unlikely: surgical process, bowel obstruction - Medical Records Medical records reviewed: Yes I reviewed the patient's medical records. - Lab Data Lab results reviewed: Yes I reviewed the patient's lab results. Result diagrams: 09/16/18 11:21 09/16/18 11:21 Lab Results 09/16/18 09/16/18 09/16/18 Range/Units 11:15 11:21 11:21 WBC 19.5 H (4.3-11.1) K/mcL RBC 4.36 (4.19-5.50) M/mcL Hgb 15.0 (12.9-16.9) g/dL Hct 42.9 (37.5-50.1) % MCV 98.4 (83.0-100.0) fL MCH 34.4 H (28.0-33.3) pg MCHC 35.0 (31.6-35.5) g/dL RDW 14.6 H (11.5-14.5) % Plt Count 234 (140-400) K/mcL MPV 8.9 L (9.4-12.4) fL Immature Gran % 1.2 (0-4) % Seg Neutrophils % 87.7 % Lymphocytes % 3.6 % Monocytes % 7.2 % Eosinophils % 0.1 % Basophils % 0.2 % Neutrophils # 17.1 H (1.6-8.9) K/mcL Lymphocytes # 0.7 (0.6-4.6) K/mcL Monocytes # 1.4 H (0.0-1.3) K/mcL Eosinophils # 0.0 (0.0-0.6) K/mcL Basophils # 0.0 (0.0-0.2) K/mcL Sodium 133 L (136-145) mEq/L Potassium 3.9 (3.5-5.1) mEq/L Chloride 100 (98-107) mEq/L Carbon Dioxide 25 (23-29) mEq/L BUN 12 (6-20) mg/dL Creatinine 0.72 (0.70-1.30) mg/dL Est GFR ( Amer) > 60 (> 60) Est GFR (Non-Af Amer) > 60 (> 60) BUN/Creatinine Ratio 17 (6-26) Glucose 139 H (70-105) mg/dL Calculated Osmolality 278 L (280-300) Lactic Acid (0.5-2.2) mmol/L Calcium 9.1 (8.6-10.3) mg/dL Total Bilirubin 0.6 (0.3-1.0) mg/dL AST 13 (13-39) Units/L ALT 19 (7-52) Units/L Alkaline Phosphatase 58 (34-104) Units/L Serum Total Protein 8.0 (6.4-8.9) g/dL Albumin 4.2 (3.5-5.7) g/dL Globulin 3.8 H (2.4-3.5) g/dL Albumin/Globulin Ratio 1.1 (1.1-2.2) Lipase 5 L (11-82) Units/L Urine Color Yellow (Yellow) Urine Clarity Cloudy A (Clear) Urine pH 8.5 H (5.0-8.0) pH Units Ur Specific Max 1.020 (1.010-1.025) Urine Protein Trace (Neg-Trace) mg/dL Urine Glucose (UA) Normal (Normal) mg/dL Urine Ketones Negative (Negative) mg/dL Urine Blood Trace-intact H (Negative) Urine Nitrite Positive A (Negative) Urine Bilirubin Negative (Negative) Urine Urobilinogen Normal (Normal) mg/dL Ur Leukocyte Esterase Small H (Negative) Urine Microscopic RBC 0-3 (0-3) per hpf Urine Microscopic WBC 15-30 H (0-3) per hpf Ur Squamous Epith Cells Few (None-Few) per lpf Urine Bacteria Many H (None-Few) per hpf Ur Culture Indicated? YES A (NO) 09/16/18 Range/Units 11:21 WBC (4.3-11.1) K/mcL RBC (4.19-5.50) M/mcL Hgb (12.9-16.9) g/dL Hct (37.5-50.1) % MCV (83.0-100.0) fL MCH (28.0-33.3) pg MCHC (31.6-35.5) g/dL RDW (11.5-14.5) % Plt Count (140-400) K/mcL MPV (9.4-12.4) fL Immature Gran % (0-4) % Seg Neutrophils % % Lymphocytes % % Monocytes % % Eosinophils % % Basophils % % Neutrophils # (1.6-8.9) K/mcL Lymphocytes # (0.6-4.6) K/mcL Monocytes # (0.0-1.3) K/mcL Eosinophils # (0.0-0.6) K/mcL Basophils # (0.0-0.2) K/mcL Sodium (136-145) mEq/L Potassium (3.5-5.1) mEq/L Chloride (98-107) mEq/L Carbon Dioxide (23-29) mEq/L BUN (6-20) mg/dL Creatinine (0.70-1.30) mg/dL Est GFR ( Amer) (> 60) Est GFR (Non-Af Amer) (> 60) BUN/Creatinine Ratio (6-26) Glucose (70-105) mg/dL Calculated Osmolality (280-300) Lactic Acid 1.0 (0.5-2.2) mmol/L Calcium (8.6-10.3) mg/dL Total Bilirubin (0.3-1.0) mg/dL AST (13-39) Units/L ALT (7-52) Units/L Alkaline Phosphatase (34-104) Units/L Serum Total Protein (6.4-8.9) g/dL Albumin (3.5-5.7) g/dL Globulin (2.4-3.5) g/dL Albumin/Globulin Ratio (1.1-2.2) Lipase (11-82) Units/L Urine Color (Yellow) Urine Clarity (Clear) Urine pH (5.0-8.0) pH Units Ur Specific Max (1.010-1.025) Urine Protein (Neg-Trace) mg/dL Urine Glucose (UA) (Normal) mg/dL Urine Ketones (Negative) mg/dL Urine Blood (Negative) Urine Nitrite (Negative) Urine Bilirubin (Negative) Urine Urobilinogen (Normal) mg/dL Ur Leukocyte Esterase (Negative) Urine Microscopic RBC (0-3) per hpf Urine Microscopic WBC (0-3) per hpf Ur Squamous Epith Cells (None-Few) per lpf Urine Bacteria (None-Few) per hpf Ur Culture Indicated? (NO) - Radiology Data Radiology results reviewed: Yes I reviewed the patient's radiology results. ITS Impressions Chest X-Ray 09/16/18 10:55 IMPRESSION: Limited by rotation. There is under aeration of the lung bases and suspected small right pleural effusion. Cannot exclude right lower lobe pneumonia. Follow up PA and lateral chest would be helpful for further evaluation. D/ / 09/16/2018 12:00:33 Shaquille Angel MD / [email or web address] Interpreting Provider: Shaquille Angel MD Chest X-Ray 09/16/18 11:54 IMPRESSION: Findings compatible with focal airspace disease in the right lower lobe concerning for pneumonia. Recommend two-view chest x-ray follow-up after a course of treatment to ensure resolution. Poorly visualized thoracic spine compression deformity appears similar to lateral view from chest x-ray 11/28/2014 although visualization is limited. Correlate for any signs or symptoms of acute back injury or pain to determine if dedicated imaging is indicated. D/ : / 09/16/2018 13:09:03 Faisal Lawson MD / sarah Interpreting Provider: Faisal Lawson MD
[2018-09-16 11:21] LABS: Bilirubin,Urine Negative (Negative); Blood,Urine Trace-intact (Negative); Clarity,Urine Cloudy (Clear); Color,Urine Yellow (Yellow); Glucose,Urine (UA) Normal (Normal); Ketones,Urine Negative (Negative); Leukocyte Esterase,Urine Small (Negative); Nitrite,Urine Positive (Negative); PH,Urine 8.5 pH Units (5.0-8.0); Protein,Urine Trace mg/dL (Neg-Trace); Urobilinogen,Urine Normal (Normal)
[2018-09-16 11:27] LABS: Basophils % 0.2 %; Eosinophils % 0.1 %; Hematocrit 42.9 % (37.5-50.1); Immature Granulocytes % 1.2 % (0-4); Lymphocytes # 0.7 K/mcL (0.6-4.6); Lymphocytes % 3.6 %; Mean Corpuscular Hemoglobin 34.4 pg (28.0-33.3); Mean Corpuscular Volume 98.4 fL (83.0-100.0); Mean Platelet Volume 8.9 fL (9.4-12.4); Monocytes # 1.4 K/mcL (0.0-1.3); Monocytes % 7.2 %; Neutrophils # 17.1 K/mcL (1.6-8.9); Platelet Count 234 K/mcL (140-400); Red Blood Count 4.36 M/mcL (4.19-5.50); Red Cell Distribution Width 14.6 % (11.5-14.5); Segmented Neutrophils % 87.7 %; White Blood Count 19.5 K/mcL (4.3-11.1)
[2018-09-16 11:29] LABS: Bacteria,Urine Many per hpf (None-Few); RBC,Urine 0-3 per hpf (0-3); Squamous Epithelial Cell,Urine Few per lpf (None-Few); WBC,Urine 15-30 per hpf (0-3)
[2018-09-16 11:42] LABS: Alanine Aminotransferase 19 Units/L (7-52); Albumin 4.2 g/dL (3.5-5.7); Albumin/Globulin Ratio 1.1 (1.1-2.2); Alkaline Phosphatase 58 Units/L (34-104); Aspartate Amino Transferase 13 Units/L (13-39); BUN/Creatinine Ratio 17 (6-26); Bilirubin,Total 0.6 mg/dL (0.3-1.0); Blood Urea Nitrogen 12 mg/dL (6-20); Calcium 9.1 mg/dL (8.6-10.3); Carbon Dioxide 25 mEq/L (23-29); Chloride 100 mEq/L (98-107); Globulin 3.8 g/dL (2.4-3.5); Glucose 139 mg/dL (70-105); Lipase 5 Units/L (11-82); Osmolality,Calculated 278 (280-300); Potassium 3.9 mEq/L (3.5-5.1); Sodium 133 mEq/L (136-145); eGFR For African Americans > 60 (> 60); eGFR For Non-African Americans > 60 (> 60)
[2018-09-16] MEDS ORDERED: cefTRIAXone 1,000 MG in Water for inj. (sterile) 10 ML IVP ONE (12:06)
[2018-09-16] MEDS ORDERED: Azithromycin 500 MG in D5% in Water 250 ML IVPB ONE (13:15)
[2018-09-16] MEDS ORDERED: Naloxone 0.4 MG/ML INJ IVP PRN ×2 (13:37→14:46)
[2018-09-16] MEDS ORDERED: Alendronate Sodium [Fosamax] 70 MG PO SCH (14:46)
[2018-09-16] MEDS ORDERED: traMADol 50 MG TABLET PO PRN (14:46)
[2018-09-16] MEDS: Ibuprofen 800 MG TABLET PO SCH (17:00)
[2018-09-16] MEDS: Baclofen 10 MG TABLET PO SCH ×2 (17:00→20:54)
[2018-09-16] MEDS ORDERED: Acetaminophen 325 MG TABLET PO PRN (18:57)
[2018-09-16] MEDS: Lactobacillus 1 EACH CAP.SPRINK PO SCH (20:54)
[2018-09-16] MEDS: clonazePAM 0.5 MG TABLET PO SCH (20:55)
[2018-09-17] MEDS: Ibuprofen 800 MG TABLET PO SCH ×3 (02:01→17:35)
[2018-09-17] MEDS: tiZANidine 4 MG TABLET PO PRN ×3 (04:07→21:26)
[2018-09-17] MEDS: Cholecalciferol (D-3) 1,000 UNIT (25MCG) TABLET PO SCH (08:52)
[2018-09-17] MEDS: clonazePAM 0.5 MG TABLET PO SCH ×2 (08:52→20:45)
[2018-09-17] MEDS: Lactobacillus 1 EACH CAP.SPRINK PO SCH ×2 (08:52→20:44)
[2018-09-17] MEDS: Baclofen 10 MG TABLET PO SCH ×4 (08:52→20:44)
--- NOTE | 2018-09-17 12:08 | Internal Med History&Physical ---
Date of Encounter: 09/17/18 Time of Encounter: 11:45 Assessment and Plan (1) Pneumonia Current visit: Yes Status: Acute He was given IV Zithromax in emergency room. He will be started on IV Rocephin also with lactobacillus. Qualifiers: Pneumonia type: due to unspecified organism Laterality: right Lung location: lower lobe of lung Qualified Code(s): J18.1 - Lobar pneumonia, unspecified organism (2) Urinary tract infection Current visit: Yes Status: Acute Urine culture has been ordered. Rx Rocephin and Zithromax with lactobacillus. 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 Internal Medicine - H&P: HPI Chief complaint: Cough, vomiting Admitted From: Emergency Dept Plans for Post Hospital Care: Home History of present illness: Mr. Cabrera is a 53 year old male who came to emergency room stating he had onset of cough the evening of September 15. There was no productivity. He denies pain or dyspnea. The following morning he had an episode of vomiting without visible blood. There was no diarrhea. He did not feel well so came to emergency room. He was evaluated and felt to have UTI and pneumonia. He was admitted to [facility] floor for ongoing care needs. He was hospitalized last at [facility] July 2016 with UTI. He has neurogenic bladder from MS and does frequent daily self catheterizations at home. He denies other kidney or bladder disorders. Respiratory history significant for being a lifelong nonsmoker and having no known chronic lung disease. He has had pneumonia in the past. Past Med Surg Social Fam HX - Past Medical History Medical history: hypertension, other Additional medical history: MS Psychiatric history: anxiety - Past Surgical History Surgical History: non-contributory, colectomy, orthopedic, other, other Additional surgical history: bladder surgery, left hand surgery, colonoscopy/egd 1997, bowel sx from obstruction - Social History Smoking Status: Never smoker Smokeless Tobacco Status: No Alcohol use: none Drug use: none - Family History Father Living Status: Still Living Hx Family Cancer: Yes (Prostate cancer in his 60s) Mother Living Status: Still Living Hx Family Cardiac Disorders: No (Hypertension) Hx Family Cancer: No Internal Medicine - H&P: Meds Baclofen 20 mg PO QID 11/28/14 [History] Calcium Carbonate/Vitamin D3 [Calcium 250-D Tablet] 1 each PO BID 11/28/14 [History] Losartan [Cozaar] 50 mg PO DAILY 11/28/14 [History] Oxybutynin [Ditropan] 5 mg PO BID 11/28/14 [History] Terazosin [Hytrin] 2 mg PO HS 11/28/14 [History] clonazePAM [Klonopin] 1 mg PO BID 11/28/14 [History] Alendronate Sodium [Fosamax] 70 mg PO QWEEK 05/27/15 [History] Ibuprofen [Motrin] 800 mg PO Q8HR #30 tablet 09/19/16 [Rx] Allergy/AdvReac Type Severity Reaction Status Date / Time No Known Allergies Allergy Verified 09/19/16 12:46 All Systems PM: A 10-system review of systems was performed and is negative for pertinent findings except as documented above in the HPI. Review of systems: Review of systems from his July 2016 [facility] hospitalization were reviewed and revised as below. Gen.: His weight has decreased from 104.326 kg at the April 2016 hospitalization to 99.79 kg now. Cardiovascular: He has a history of hypertension but denies SD heart failure angina DVT or pulmonary embolus Respiratory: As per history of present illness GI: He has GERD but denies disorders of his liver gallbladder or exocrine pancreas. : As per history of present illness Neurologic: He was diagnosed with multiple sclerosis in [address] Mars at [facility] approximately every 6 months. He denies large distribution strokes or seizures. He is nonambulatory and uses a motorized scooter at home. Endocrine: He denies diabetes thyroid disease or hyperlipidemia Hematology/oncology: He denies blood disorders cancers or anemia Musk skeletal: He has osteoporosis but denies other bone joint or muscle disorders Psychiatric: He denies anxiety depression or other mental health issues - Constitutional Vitals: Temp Pulse Resp BP Pulse Ox 97.6 F 98 18 112/55 95 09/17/18 10:18 09/17/18 10:18 09/17/18 06:40 09/17/18 10:18 09/17/18 10:18 Exam: Gen.: He is a well-developed well-nourished male resting comfortably in bed who appears in no acute distress. HEENT: Head is atraumatic and normocephalic. Eyes: EOMI. There is no scleral icterus. Mouth: Mucosa is moist. Neck: Supple and nontender. There is no thyromegaly or adenopathy noted. Heart: Regular without murmurs gallops or ectopics Lungs: No wheezes or crackles are heard. Abdomen: Soft and nontender. No masses or guarding are noted. Extremities: There is no edema of his ankles. He has no DJD changes of his hands. Neurologic: Mental status: He is talkative and a good historian. Cranial nerves: Smile is symmetric. Forehead wrinkles bilaterally. Tongue protrudes midline. EOMI. Motor: There is no pronator drift. Cerebellar: Finger to nose is intact bilaterally. There is some moderate amplitude oscillatory tremor of the right hand as he attempts the maneuver. Skin: Warm and dry Internal Med - H&P Results - Labs CBC & Chem 7: 09/16/18 11:21 09/16/18 11:21 - Impressions ITS Impressions Chest X-Ray 09/16/18 10:55 IMPRESSION: Limited by rotation. There is under aeration of the lung bases and suspected small right pleural effusion. Cannot exclude right lower lobe pneumonia. Follow up PA and lateral chest would be helpful for further evaluation. D/ / 09/16/2018 12:00:33 Shaquille Angel MD / clara Interpreting Provider: Shaquille Angel MD Chest X-Ray 09/16/18 11:54 IMPRESSION: Findings compatible with focal airspace disease in the right lower lobe concerning for pneumonia. Recommend two-view chest x-ray follow-up after a course of treatment to ensure resolution. Poorly visualized thoracic spine compression deformity appears similar to lateral view from chest x-ray 11/28/2014 although visualization is limited. Correlate for any signs or symptoms of acute back injury or pain to determine if dedicated imaging is indicated. D/ / 09/16/2018 13:09:03 Faisal Lawson MD / sarah Interpreting Provider: Faisal Lawson MD - VTE Reasons for not Prescribing Prophylaxis: Treatment not Indicated - Low risk for VTE
[2018-09-17] MEDS ORDERED: cefTRIAXone 1,000 MG in Water for inj. (sterile) 10 ML IVP SCH (13:00)
[2018-09-17] MEDS ORDERED: Azithromycin 500 MG in D5% in Water 250 ML IVPB SCH (13:00)
[2018-09-18] MEDS: Ibuprofen 800 MG TABLET PO SCH ×2 (00:59→07:40)
[2018-09-18 05:34] LABS: Basophils % 0.4 %; Eosinophils # 0.2 K/mcL (0.0-0.6); Eosinophils % 1.6 %; Hematocrit 36.5 % (37.5-50.1); Hemoglobin 12.2 g/dL (12.9-16.9); Immature Granulocytes % 0.6 % (0-4); Lymphocytes # 1.9 K/mcL (0.6-4.6); Lymphocytes % 18.8 %; Mean Corpuscular HGB Conc 33.4 g/dL (31.6-35.5); Mean Corpuscular Hemoglobin 33.6 pg (28.0-33.3); Mean Corpuscular Volume 100.6 fL (83.0-100.0); Mean Platelet Volume 9.2 fL (9.4-12.4); Monocytes # 0.8 K/mcL (0.0-1.3); Monocytes % 8.1 %; Neutrophils # 6.9 K/mcL (1.6-8.9); Platelet Count 219 K/mcL (140-400); Red Blood Count 3.63 M/mcL (4.19-5.50); Red Cell Distribution Width 14.5 % (11.5-14.5); Segmented Neutrophils % 70.5 %; White Blood Count 9.8 K/mcL (4.3-11.1)
[2018-09-18 08:34] VITALS: BP 126/74
[2018-09-18] MEDS: Lactobacillus 1 EACH CAP.SPRINK PO SCH (08:36)
[2018-09-18] MEDS: Cholecalciferol (D-3) 1,000 UNIT (25MCG) TABLET PO SCH (08:36)
[2018-09-18] MEDS: Baclofen 10 MG TABLET PO SCH (08:36)
[2018-09-18] MEDS: clonazePAM 0.5 MG TABLET PO SCH (08:37)
--- NOTE | 2018-09-18 10:16 | Discharge Summary ---
Orders not resulted at time of discharge: Pending orders 09/16/18 11:15 Culture,Urine [RM] Stat 09/16/18 13:31 Culture,Blood [BC] Stat Date of Encounter: 09/18/18 Time of Encounter: 10:05 - Discharge Diagnosis (1) Pneumonia Priority: Primary Status: Acute Qualifiers: Pneumonia type: due to unspecified organism Laterality: right Lung location: lower lobe of lung Qualified Code(s): J18.1 - Lobar pneumonia, unspecified organism (2) Urinary tract infection Priority: Secondary Status: Acute Qualifiers: Urinary tract infection type: catheter-associated UTI Indwelling urinary catheter type: unspecified Encounter type: initial encounter Qualified Code(s): T83.511A - Infection and inflammatory reaction due to indwelling urethral catheter, initial encounter; N39.0 - Urinary tract infection, site not specified (3) Multiple sclerosis Priority: Secondary Status: Chronic (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 Cabrera is a 53 year old male who came to emergency room stating he had onset of cough the evening of September 15. There was no productivity. He denies pain or dyspnea. The following morning he had an episode of vomiting without visible blood. There was no diarrhea. He did not feel well so came to emergency room. He was evaluated and felt to have UTI and pneumonia. He was admitted to [facility] floor for ongoing care needs. Initial orders were written by the emergency room physician. I saw him on September 17 and performed a history and physical. He was started on IV Rocephin and Zithromax with lactobacillus for pneumonia and UTI. He had good clinical response with WBC normalizing to 9.8 and resolution of left shift by the following day. He remained afebrile. Preliminary urine culture report on day of discharge shows gram-negative donta. His PCP can follow up and determine adequate coverage by Cefdinir. He will continue with antibiotic and probiotic for 4 additional days at discharge. He will follow with his PCP Dr. Abhi Leslie within 1 week. - Time Spent with Patient Total time spent providing and/or coordinating discharge services: - Discharge Medications Prescriptions: New Lactobacillus [Culturelle] 1 each PO BID #8 cap.sprink Cefdinir [Omnicef] 300 mg PO BID #8 capsule Azithromycin [Zithromax] 250 mg PO DAILY #4 tablet Continued Ibuprofen [Motrin] 800 mg PO Q8HR #30 tablet Calcium Carbonate/Vitamin D3 [Calcium 250-D Tablet] 1 each PO BID Losartan [Cozaar] 50 mg PO DAILY Terazosin [Hytrin] 2 mg PO HS Oxybutynin [Ditropan] 5 mg PO BID clonazePAM [Klonopin] 1 mg PO BID Baclofen 20 mg PO QID Alendronate Sodium [Fosamax] 70 mg PO QWEEK Home Medications: Baclofen 20 mg PO QID 11/28/14 [History] Calcium Carbonate/Vitamin D3 [Calcium 250-D Tablet] 1 each PO BID 11/28/14 [History] Losartan [Cozaar] 50 mg PO DAILY 11/28/14 [History] Oxybutynin [Ditropan] 5 mg PO BID 11/28/14 [History] Terazosin [Hytrin] 2 mg PO HS 11/28/14 [History] clonazePAM [Klonopin] 1 mg PO BID 11/28/14 [History] Alendronate Sodium [Fosamax] 70 mg PO QWEEK 05/27/15 [History] Ibuprofen [Motrin] 800 mg PO Q8HR #30 tablet 09/19/16 [Rx] Azithromycin [Zithromax] 250 mg PO DAILY #4 tablet 09/18/18 [Rx] Cefdinir [Omnicef] 300 mg PO BID #8 capsule 09/18/18 [Rx] Lactobacillus [Culturelle] 1 each PO BID #8 cap.sprink 09/18/18 [Rx] Allergies/Adverse Reactions: Allergy/AdvReac Type Severity Reaction Status Date / Time No Known Allergies Allergy Verified 09/19/16 12:46 Date of admission: 09/16/18 14:01 Primary care physician: Abhi Leslie DO - Constitutional Vitals: Temp Pulse Resp BP Pulse Ox 98.7 F 90 18 126/74 96 09/18/18 06:53 09/18/18 08:34 09/18/18 06:53 09/18/18 08:34 09/18/18 08:34 - Patient Status Disposition: Home, Self-Care Condition: Fair - Discharge Instructions Follow Up With: Abhi Leslie DO [Primary Care Provider] - 1 week - Diet and Activity Activity: resume usual activities as tolerated Diet: advance to your usual diet - VTE Reasons for not Prescribing Prophylaxis: Treatment not Indicated - Low risk for VTE
[2018-09-18] MEDS ORDERED: cefTRIAXone 1,000 MG in Water for inj. (sterile) 10 ML IVP SCH (13:00)
[2018-09-21] MEDS ORDERED: Alendronate Sodium [Fosamax] 70 MG PO SCH (07:30)
== END 2018-09-18 11:20 | disposition home or self-care (01) ==
LOC: EMEROOPIK 10:47 → INPPIK 10:47
PROVIDERS: ADMIT Internal Medicine; ATTEND Internal Medicine

== ENCOUNTER 2021-03-14 13:00 | Inpatient (IN) ==
[2021-03-14] MEDS ORDERED: 0.9 % Sodium Chloride 1,000 ML IVC ONE ×2 (13:42→16:08)
[2021-03-14 13:50] LABS: Bilirubin,Urine Negative (Negative); Blood,Urine Small (Negative); Clarity,Urine Clear (Clear); Color,Urine Yellow (Yellow); Glucose,Urine (UA) Normal (Normal); Ketones,Urine Negative (Negative); Leukocyte Esterase,Urine Moderate (Negative); Nitrite,Urine Positive (Negative); PH,Urine >=9.0 pH Units (5.0-8.0); Protein,Urine 100 mg/dL (Neg-Trace); Urobilinogen,Urine Normal (Normal)
[2021-03-14 13:58] LABS: Amorphous Sediment,Urine Few per hpf (None-Few); Bacteria,Urine Many per hpf (None-Few); WBC,Urine 15-30 per hpf (0-3)
[2021-03-14 14:20] LABS: Basophils % 0.1 %; Hematocrit 44.3 % (37.5-50.1); Hemoglobin 14.6 g/dL (12.9-16.9); Immature Granulocytes % 1.2 % (0-4); Lymphocytes # 0.4 K/mcL (0.6-4.6); Lymphocytes % 1.5 %; Mean Corpuscular Hemoglobin 33.2 pg (28.0-33.3); Mean Corpuscular Volume 100.7 fL (83.0-100.0); Mean Platelet Volume 9.5 fL (9.4-12.4); Monocytes # 1.5 K/mcL (0.0-1.3); Monocytes % 6.4 %; Neutrophils # 21.7 K/mcL (1.6-8.9); Platelet Count 246 K/mcL (140-400); Segmented Neutrophils % 90.8 %; White Blood Count 23.9 K/mcL (4.3-11.1)
[2021-03-14 14:33] LABS: Platelet Estimate Normal (Normal)
[2021-03-14 14:38] LABS: Alanine Aminotransferase 20 Units/L (7-52); Albumin 4.4 g/dL (3.5-5.7); Albumin/Globulin Ratio 1.3 (1.1-2.2); Alkaline Phosphatase 69 Units/L (34-104); Aspartate Amino Transferase 18 Units/L (13-39); BUN/Creatinine Ratio 16 (6-26); Bilirubin,Direct 0.1 mg/dL (0.0-0.2); Bilirubin,Indirect 0.5 mg/dL (0.0-1.0); Bilirubin,Total 0.6 mg/dL (0.3-1.0); Blood Urea Nitrogen 14 mg/dL (6-20); Calcium 9.2 mg/dL (8.6-10.3); Carbon Dioxide 25 mEq/L (23-29); Chloride 104 mEq/L (98-107); Globulin 3.5 g/dL (2.4-3.5); Glucose 144 mg/dL (70-105); Osmolality,Calculated 287 (280-300); Potassium 3.9 mEq/L (3.5-5.1); Sodium 137 mEq/L (136-145); Total Protein 7.9 g/dL (6.4-8.9); Troponin I < 0.03 ng/mL (< 0.04); eGFR For African Americans > 60 (> 60); eGFR For Non-African Americans > 60 (> 60)
[2021-03-14] MEDS ORDERED: Mag Hydrox/Al Hydrox/Simeth 30 ML UDC PO PRN (15:51)
[2021-03-14] MEDS ORDERED: Naloxone 0.4 MG/ML INJ IVP PRN (15:51)
[2021-03-14] MEDS ORDERED: MOM Conc 10 ML UD.LIQ PO PRN (15:51)
[2021-03-14] MEDS ORDERED: Acetaminophen 325 MG TABLET PO PRN (15:51)
[2021-03-14] MEDS ORDERED: Ondansetron 4 MG/2 ML VIAL IVP PRN (15:51)
[2021-03-14] MEDS ORDERED: NON-FORMULARY MEDICATION 1 EACH EACH (Alendronate Sodium [Fosamax] 70 MG Tablet) PO SCH (16:00)
[2021-03-14] MEDS: Piperacillin/Tazobactam 3.375 GM in 0.9 % Sodium Chloride Mini Bag 100 ML IVPB SCH ×2 (18:30→23:30)
[2021-03-14] MEDS: 0.9 % Sodium Chloride 1,000 ML IVC SCH (18:31)
[2021-03-14] MEDS: Baclofen 10 MG TABLET PO SCH ×2 (18:31→23:30)
[2021-03-14] MEDS: clonazePAM 0.5 MG TABLET PO SCH (20:14)
[2021-03-15] MEDS: 0.9 % Sodium Chloride 1,000 ML IVC SCH (04:18)
[2021-03-15] MEDS: *HR* Enoxaparin 40 MG/0.4 ML SYRINGE SQ SCH (06:14)
[2021-03-15 08:36] LABS: Basophils % 0.2 %; Eosinophils # 0.1 K/mcL (0.0-0.6); Eosinophils % 0.3 %; Hematocrit 35.2 % (37.5-50.1); Hemoglobin 11.5 g/dL (12.9-16.9); Immature Granulocytes % 0.7 % (0-4); Lymphocytes # 0.9 K/mcL (0.6-4.6); Mean Corpuscular HGB Conc 32.7 g/dL (31.6-35.5); Mean Corpuscular Hemoglobin 33.3 pg (28.0-33.3); Mean Platelet Volume 9.6 fL (9.4-12.4); Monocytes # 1.5 K/mcL (0.0-1.3); Monocytes % 8.4 %; Neutrophils # 15.1 K/mcL (1.6-8.9); Platelet Count 220 K/mcL (140-400); Red Blood Count 3.45 M/mcL (4.19-5.50); Red Cell Distribution Width 14.4 % (11.5-14.5); Segmented Neutrophils % 85.4 %; White Blood Count 17.7 K/mcL (4.3-11.1)
[2021-03-15 08:44] LABS: BUN/Creatinine Ratio 15 (6-26); Blood Urea Nitrogen 11 mg/dL (6-20); Calcium 7.8 mg/dL (8.6-10.3); Carbon Dioxide 26 mEq/L (23-29); Chloride 108 mEq/L (98-107); Glucose 123 mg/dL (70-105); Osmolality,Calculated 291 (280-300); Potassium 3.7 mEq/L (3.5-5.1); Sodium 140 mEq/L (136-145); eGFR For African Americans > 60 (> 60); eGFR For Non-African Americans > 60 (> 60)
[2021-03-15] MEDS: Multivit/Ca/Min/Fe/FA 1 TAB TABLET PO SCH (09:48)
[2021-03-15] MEDS: clonazePAM 0.5 MG TABLET PO SCH ×2 (09:48→21:11)
[2021-03-15] MEDS: Piperacillin/Tazobactam 3.375 GM in 0.9 % Sodium Chloride Mini Bag 100 ML IVPB SCH (09:49)
[2021-03-15] MEDS: Cholecalciferol (D-3) 1,000 UNIT (25MCG) TABLET PO SCH (09:49)
[2021-03-15] MEDS: Baclofen 10 MG TABLET PO SCH ×4 (09:49→21:11)
[2021-03-15] MEDS: Psyllium 1 PACKET POWD.PACK PO SCH (09:50)
[2021-03-16 00:52] VITALS: O2SAT 94
[2021-03-16] MEDS: *HR* Enoxaparin 40 MG/0.4 ML SYRINGE SQ SCH (05:13)
[2021-03-16 06:56] LABS: Basophils % 0.3 %; Eosinophils # 0.2 K/mcL (0.0-0.6); Eosinophils % 1.9 %; Hematocrit 35.2 % (37.5-50.1); Hemoglobin 11.2 g/dL (12.9-16.9); Immature Granulocytes % 0.4 % (0-4); Lymphocytes # 1.2 K/mcL (0.6-4.6); Lymphocytes % 10.1 %; Mean Corpuscular HGB Conc 31.8 g/dL (31.6-35.5); Mean Corpuscular Hemoglobin 32.5 pg (28.0-33.3); Mean Platelet Volume 9.1 fL (9.4-12.4); Monocytes % 8.6 %; Neutrophils # 9.3 K/mcL (1.6-8.9); Platelet Count 214 K/mcL (140-400); Red Blood Count 3.45 M/mcL (4.19-5.50); Red Cell Distribution Width 14.2 % (11.5-14.5); Segmented Neutrophils % 78.7 %; White Blood Count 11.8 K/mcL (4.3-11.1)
[2021-03-16 07:23] LABS: BUN/Creatinine Ratio 11 (6-26); Blood Urea Nitrogen 9 mg/dL (6-20); Calcium 8.1 mg/dL (8.6-10.3); Carbon Dioxide 27 mEq/L (23-29); Chloride 108 mEq/L (98-107); Glucose 122 mg/dL (70-105); Osmolality,Calculated 292 (280-300); Potassium 3.7 mEq/L (3.5-5.1); Sodium 141 mEq/L (136-145); eGFR For African Americans > 60 (> 60); eGFR For Non-African Americans > 60 (> 60)
[2021-03-16 08:13] VITALS: BP 114/69; PULSE 83; RESP 20; TEMP 98.1
[2021-03-16] MEDS ORDERED: levoFLOXacin 750 MG/150 ML 750 MG/150 ML BAG IVPB SCH (09:00)
[2021-03-16] MEDS: Psyllium 1 PACKET POWD.PACK PO SCH (09:41)
[2021-03-16] MEDS: Cholecalciferol (D-3) 1,000 UNIT (25MCG) TABLET PO SCH (09:42)
[2021-03-16] MEDS: Multivit/Ca/Min/Fe/FA 1 TAB TABLET PO SCH (09:42)
[2021-03-16] MEDS: Baclofen 10 MG TABLET PO SCH ×2 (09:42→12:02)
[2021-03-16] MEDS: clonazePAM 0.5 MG TABLET PO SCH (09:43)
== END 2021-03-16 15:45 | disposition home health service (06) | DRG 689 ==
LOC: INPPIK 13:00 → EMEROOPIK 13:00 → INPPIK 16:26
PROVIDERS: ADMIT Internal Medicine; ATTEND Internal Medicine

== ENCOUNTER 2021-08-12 12:48 | Inpatient (IN) ==
[2021-08-12] MEDS ORDERED: 0.9 % Sodium Chloride 500 ML IVC ONE (13:01)
[2021-08-12] MEDS: 0.9 % Sodium Chloride 1,000 ML IVC SCH (13:20)
[2021-08-12 13:23] LABS: Basophils % 0.2 %; Hematocrit 48.3 % (37.5-50.1); Hemoglobin 15.9 g/dL (12.9-16.9); Immature Granulocytes % 0.3 % (0-4); Lymphocytes # 0.3 K/mcL (0.6-4.6); Lymphocytes % 2.5 %; Mean Corpuscular HGB Conc 32.9 g/dL (31.6-35.5); Mean Corpuscular Hemoglobin 32.3 pg (28.0-33.3); Mean Platelet Volume 9.2 fL (9.4-12.4); Monocytes # 1.1 K/mcL (0.0-1.3); Monocytes % 9.1 %; Neutrophils # 10.6 K/mcL (1.6-8.9); Platelet Count 249 K/mcL (140-400); Red Blood Count 4.93 M/mcL (4.19-5.50); Red Cell Distribution Width 15.5 % (11.5-14.5); Segmented Neutrophils % 87.9 %
[2021-08-12 13:40] LABS: Bilirubin,Urine Negative (Negative); Blood,Urine Large (Negative); Clarity,Urine Turbid (Clear); Color,Urine Dark Yellow (Yellow); Glucose,Urine (UA) Normal (Normal); Ketones,Urine Negative (Negative); Leukocyte Esterase,Urine Large (Negative); Nitrite,Urine Positive (Negative); PH,Urine >=9.0 pH Units (5.0-8.0); Protein,Urine >=300 mg/dL (Neg-Trace); Specific Gravity,Urine 1.015 (1.010-1.025); Urobilinogen,Urine Normal (Normal)
[2021-08-12 13:42] LABS: Albumin 4.7 g/dL (3.5-5.7); Albumin/Globulin Ratio 1.3 (1.1-2.2); Bilirubin,Direct 0.1 mg/dL (0.0-0.2); Bilirubin,Indirect 0.4 mg/dL (0.0-1.0); Bilirubin,Total 0.5 mg/dL (0.3-1.0); Globulin 3.7 g/dL (2.4-3.5); Total Protein 8.4 g/dL (6.4-8.9)
[2021-08-12 13:43] LABS: BUN/Creatinine Ratio 16 (6-26); Blood Urea Nitrogen 21 mg/dL (6-20); Calcium 9.1 mg/dL (8.6-10.3); Carbon Dioxide 27 mEq/L (23-29); Chloride 99 mEq/L (98-107); Glucose 122 mg/dL (70-105); Osmolality,Calculated 288 (280-300); Potassium 4.2 mEq/L (3.5-5.1); Sodium 137 mEq/L (136-145); eGFR For African Americans > 60 (> 60); eGFR For Non-African Americans 57 (> 60)
[2021-08-12] MEDS ORDERED: cefTRIAXone 2,000 MG in 0.9 % Sodium Chloride Mini Bag 100 ML IVPB ONE (13:46)
[2021-08-12 13:49] LABS: Bacteria,Urine Many per hpf (None-Few); RBC,Urine 30-50 per hpf (0-3); Squamous Epithelial Cell,Urine Few per hpf (None-Few); WBC,Urine 15-30 per hpf (0-3)
[2021-08-12] MEDS ORDERED: Naloxone 0.4 MG/ML INJ IVP PRN (14:19)
[2021-08-12] MEDS ORDERED: Ondansetron 4 MG/2 ML VIAL IVP PRN (14:24)
[2021-08-12] MEDS ORDERED: 0.9 % Sodium Chloride 1,000 ML IVC ONE (14:28)
[2021-08-12] MEDS: Piperacillin/Tazobactam 3.375 GM in 0.9 % Sodium Chloride Mini Bag 100 ML IVPB SCH ×2 (18:07→23:37)
[2021-08-12] MEDS: Acetaminophen 325 MG TABLET PO PRN (18:12)
[2021-08-12] MEDS: Nystatin Cream 15 GM TUBE TP SCH (20:40)
[2021-08-13 07:05] LABS: Hematocrit 41.8 % (37.5-50.1); Hemoglobin 13.6 g/dL (12.9-16.9); Mean Corpuscular HGB Conc 32.5 g/dL (31.6-35.5); Mean Corpuscular Hemoglobin 32.2 pg (28.0-33.3); Mean Corpuscular Volume 99.1 fL (83.0-100.0); Mean Platelet Volume 9.2 fL (9.4-12.4); Platelet Count 216 K/mcL (140-400); Red Blood Count 4.22 M/mcL (4.19-5.50); Red Cell Distribution Width 15.9 % (11.5-14.5); White Blood Count 8.5 K/mcL (4.3-11.1)
[2021-08-13 07:32] LABS: BUN/Creatinine Ratio 20 (6-26); Blood Urea Nitrogen 17 mg/dL (6-20); Calcium 7.8 mg/dL (8.6-10.3); Carbon Dioxide 26 mEq/L (23-29); Chloride 104 mEq/L (98-107); Glucose 111 mg/dL (70-105); Osmolality,Calculated 288 (280-300); Potassium 3.7 mEq/L (3.5-5.1); Sodium 138 mEq/L (136-145); eGFR For African Americans > 60 (> 60); eGFR For Non-African Americans > 60 (> 60)
[2021-08-13] MEDS: 0.9 % Sodium Chloride 1,000 ML IVC SCH ×3 (08:42→11:00)
[2021-08-13] MEDS: Piperacillin/Tazobactam 3.375 GM in 0.9 % Sodium Chloride Mini Bag 100 ML IVPB SCH ×3 (10:59→23:56)
[2021-08-13] MEDS: Nystatin Cream 15 GM TUBE TP SCH ×2 (11:00→20:18)
[2021-08-13] MEDS ORDERED: NON-FORMULARY MEDICATION 1 EACH EACH (Alendronate Sodium [Fosamax] 70 MG Tablet) PO SCH (15:30)
[2021-08-13] MEDS: Baclofen 10 MG TABLET PO PRN (18:14)
[2021-08-13] MEDS: clonazePAM 0.5 MG TABLET PO SCH (20:15)
[2021-08-13 22:06] LABS: Adenovirus Not Detected (Not Detect); Bordetella Pertussis Not Detected (Not Detect); Chlamydophila pneumoniae Not Detected (Not Detect); Coronavirus 229E Not Detected (Not Detect); Coronavirus HKU1 Not Detected (Not Detect); Coronavirus NL63 Not Detected (Not Detect); Coronavirus OC43 Not Detected (Not Detect); Human Metapneumovirus Not Detected (Not Detect); Human Rhinovirus/Enterovirus Not Detected (Not Detect); Influenza A Subtype 2009 H1 Not Detected (Not Detect); Influenza B Not Detected (Not Detect); Mycoplasma pneumoniae Not Detected (Not Detect); Parainfluenza Virus 1 Not Detected (Not Detect); Parainfluenza Virus 2 Not Detected (Not Detect); Parainfluenza Virus 3 Not Detected (Not Detect); Parainfluenza Virus 4 Not Detected (Not Detect); Respiratory Syncytial Virus Not Detected (Not Detect)
[2021-08-13 22:07] LABS: SARS-CoV-2 DETECTED (Not Detect)
[2021-08-13] MEDS: Acetaminophen 325 MG TABLET PO PRN (23:55)
[2021-08-14 07:58] LABS: Hematocrit 35.2 % (37.5-50.1); Hemoglobin 11.4 g/dL (12.9-16.9); Mean Corpuscular HGB Conc 32.4 g/dL (31.6-35.5); Mean Corpuscular Hemoglobin 32.2 pg (28.0-33.3); Mean Corpuscular Volume 99.4 fL (83.0-100.0); Mean Platelet Volume 9.1 fL (9.4-12.4); Platelet Count 188 K/mcL (140-400); Red Blood Count 3.54 M/mcL (4.19-5.50); Red Cell Distribution Width 15.4 % (11.5-14.5); White Blood Count 4.6 K/mcL (4.3-11.1)
[2021-08-14 08:16] LABS: BUN/Creatinine Ratio 21 (6-26); Blood Urea Nitrogen 15 mg/dL (6-20); Calcium 7.5 mg/dL (8.6-10.3); Carbon Dioxide 26 mEq/L (23-29); Chloride 106 mEq/L (98-107); Glucose 100 mg/dL (70-105); Osmolality,Calculated 287 (280-300); Potassium 3.5 mEq/L (3.5-5.1); Sodium 138 mEq/L (136-145); eGFR For African Americans > 60 (> 60); eGFR For Non-African Americans > 60 (> 60)
[2021-08-14] MEDS: 0.9 % Sodium Chloride 1,000 ML IVC SCH (10:33)
[2021-08-14] MEDS: Piperacillin/Tazobactam 3.375 GM in 0.9 % Sodium Chloride Mini Bag 100 ML IVPB SCH ×3 (10:36→23:24)
[2021-08-14] MEDS: clonazePAM 0.5 MG TABLET PO SCH ×2 (10:37→20:35)
[2021-08-14] MEDS: Nystatin Cream 15 GM TUBE TP SCH ×2 (10:37→20:36)
[2021-08-14] MEDS: Multivit/Ca/Min/Fe/FA 1 TAB TABLET PO SCH (10:38)
[2021-08-14] MEDS: Cholecalciferol (D-3) 1,000 UNIT (25MCG) TABLET PO SCH (10:38)
[2021-08-14] MEDS ORDERED: Benzonatate 100 MG CAPSULE PO PRN (13:29)
[2021-08-15] MEDS: *HR* Enoxaparin 40 MG/0.4 ML SYRINGE SQ SCH (06:51)
[2021-08-15 07:58] LABS: Basophils % 0.6 %; Eosinophils % 0.9 %; Hematocrit 36.4 % (37.5-50.1); Hemoglobin 11.7 g/dL (12.9-16.9); Lymphocytes # 0.6 K/mcL (0.6-4.6); Lymphocytes % 19.1 %; Mean Corpuscular HGB Conc 32.1 g/dL (31.6-35.5); Mean Corpuscular Volume 99.5 fL (83.0-100.0); Mean Platelet Volume 9.1 fL (9.4-12.4); Monocytes # 0.5 K/mcL (0.0-1.3); Monocytes % 13.7 %; Neutrophils # 2.2 K/mcL (1.6-8.9); Platelet Count 186 K/mcL (140-400); Red Blood Count 3.66 M/mcL (4.19-5.50); Red Cell Distribution Width 15.1 % (11.5-14.5); Segmented Neutrophils % 65.7 %; White Blood Count 3.3 K/mcL (4.3-11.1)
[2021-08-15 08:48] LABS: BUN/Creatinine Ratio 19 (6-26); Blood Urea Nitrogen 12 mg/dL (6-20); Calcium 7.7 mg/dL (8.6-10.3); Carbon Dioxide 25 mEq/L (23-29); Chloride 107 mEq/L (98-107); Glucose 126 mg/dL (70-105); Osmolality,Calculated 289 (280-300); Potassium 3.5 mEq/L (3.5-5.1); Sodium 139 mEq/L (136-145); eGFR For African Americans > 60 (> 60); eGFR For Non-African Americans > 60 (> 60)
[2021-08-15] MEDS: Multivit/Ca/Min/Fe/FA 1 TAB TABLET PO SCH (09:44)
[2021-08-15] MEDS: Cholecalciferol (D-3) 1,000 UNIT (25MCG) TABLET PO SCH (09:44)
[2021-08-15] MEDS: clonazePAM 0.5 MG TABLET PO SCH ×2 (09:44→19:57)
[2021-08-15] MEDS: Nystatin Cream 15 GM TUBE TP SCH ×2 (09:45→19:57)
[2021-08-15] MEDS: Piperacillin/Tazobactam 3.375 GM in 0.9 % Sodium Chloride Mini Bag 100 ML IVPB SCH ×2 (09:45→16:20)
[2021-08-15] MEDS: Baclofen 10 MG TABLET PO PRN (10:09)
[2021-08-16] MEDS: Piperacillin/Tazobactam 3.375 GM in 0.9 % Sodium Chloride Mini Bag 100 ML IVPB SCH ×4 (00:33→23:42)
[2021-08-16] MEDS: *HR* Enoxaparin 40 MG/0.4 ML SYRINGE SQ SCH (04:49)
[2021-08-16] MEDS: Cholecalciferol (D-3) 1,000 UNIT (25MCG) TABLET PO SCH (10:09)
[2021-08-16] MEDS: clonazePAM 0.5 MG TABLET PO SCH ×2 (10:09→20:50)
[2021-08-16] MEDS: Multivit/Ca/Min/Fe/FA 1 TAB TABLET PO SCH (10:10)
[2021-08-16] MEDS: Nystatin Cream 15 GM TUBE TP SCH ×2 (10:13→20:52)
[2021-08-16] MEDS: Acetaminophen 325 MG TABLET PO PRN (15:07)
[2021-08-17] MEDS: *HR* Enoxaparin 40 MG/0.4 ML SYRINGE SQ SCH (06:24)
[2021-08-17 07:28] VITALS: BP 121/74; PULSE 93; RESP 18; TEMP 98.2; O2SAT 93
[2021-08-17 07:57] LABS: BUN/Creatinine Ratio 17 (6-26); Blood Urea Nitrogen 12 mg/dL (6-20); Calcium 8.8 mg/dL (8.6-10.3); Carbon Dioxide 27 mEq/L (23-29); Chloride 105 mEq/L (98-107); Glucose 99 mg/dL (70-105); Osmolality,Calculated 286 (280-300); Sodium 138 mEq/L (136-145); eGFR For African Americans > 60 (> 60); eGFR For Non-African Americans > 60 (> 60)
[2021-08-17 08:06] LABS: Basophils % 0.2 %; Eosinophils # 0.1 K/mcL (0.0-0.6); Eosinophils % 1.5 %; Hematocrit 39.3 % (37.5-50.1); Hemoglobin 12.8 g/dL (12.9-16.9); Immature Granulocytes % 0.2 % (0-4); Lymphocytes # 0.8 K/mcL (0.6-4.6); Lymphocytes % 20.2 %; Mean Corpuscular HGB Conc 32.6 g/dL (31.6-35.5); Mean Corpuscular Hemoglobin 31.9 pg (28.0-33.3); Mean Platelet Volume 8.9 fL (9.4-12.4); Monocytes # 0.6 K/mcL (0.0-1.3); Monocytes % 14.8 %; Neutrophils # 2.6 K/mcL (1.6-8.9); Platelet Count 229 K/mcL (140-400); Red Blood Count 4.01 M/mcL (4.19-5.50); Red Cell Distribution Width 14.5 % (11.5-14.5); Segmented Neutrophils % 63.1 %; White Blood Count 4.1 K/mcL (4.3-11.1)
[2021-08-17] MEDS: Piperacillin/Tazobactam 3.375 GM in 0.9 % Sodium Chloride Mini Bag 100 ML IVPB SCH (08:06)
[2021-08-17] MEDS ORDERED: Sulfamethoxazole/Trimeth DS 1 EACH TABLET PO SCH (09:00)
[2021-08-17] MEDS: clonazePAM 0.5 MG TABLET PO SCH (09:22)
[2021-08-17] MEDS: Nystatin Cream 15 GM TUBE TP SCH (09:22)
[2021-08-17] MEDS: Multivit/Ca/Min/Fe/FA 1 TAB TABLET PO SCH (09:22)
[2021-08-17] MEDS: Cholecalciferol (D-3) 1,000 UNIT (25MCG) TABLET PO SCH (09:22)
[2021-08-17] MEDS: 0.9 % Sodium Chloride 1,000 ML IVC SCH ×2 (11:55→11:56)
== END 2021-08-17 12:30 | disposition home health service (06) | DRG 871 ==
LOC: EMEROOPIK 12:48 → INPPIK 12:48
PROVIDERS: ADMIT Family Medicine; ATTEND Family Medicine